=== PATIENT | female | born 1995 | race Caucasian/White ===

== ENCOUNTER 2018-08-29 16:00 | Emergency (ER) | payer BC ==
[~2018-08-29] VITALS: Ht 152.4 cm; Wt 63.5 kg
--- OUTSIDE RECORDS SUMMARY | 2018-08-29 16:04 | XMS REPORT ---
Author Author Rosario Lucas Organization [employer] Address Unknown Phone Unavailable Care Team Providers Care Quality Auditor Name Role Phone Rosario Lucas Unavailable Encounters Encounter Location Date sore throat [facility] Jul 26, 2013 Problems Problem Type Condition ICD-9 Code Onset Dates Condition Status Assessment Acute tonsillitis 463 Active Assessment Strep pharyngitis 034.0 Active Medications Medication Code System Code Instructions Start Date End Date Status Dosage Augmentin [facility] [address]-50 500-125 MG Orally Twice a day Jul 26, 2013 Aug 02, 2013 Active 1 tablet Bromfed DM [facility] [address]-37 30-2-10 MG/5ML Orally every 6 hrs Jul 26, 2013 Aug 05, 2013 Active 10 ml as needed Sinus Congestion/Pain Day/Nght [facility] [address] 2-5-325 & 5-325 MG Orally Active as directed Social History Social History Element Qualifiers Date Reported Where or with whom do you live ? . mother Jul 26, 2013 hobbies/sports . dance Jul 26, 2013 children . none Jul 26, 2013 Tobacco Use: . Are you a: never smoker Jul 26, 2013 Marital Status: single. Jul 26, 2013 Do you drink alcohol? . Status: No Jul 26, 2013 Occupation: . student Jul 26, 2013 Family history Qualifier Description Comment Date Reported Father alive healthy Jul 26, 2013 Mother alive multiple sclerosis Jul 26, 2013 Siblings alive healthy Jul 26, 2013 Vital Signs Date/Time: Jul 26, 2013 Weight 125 lbs Height 60 inches Temperature 98.8 F Cardiac Monitoring Heart Rate 88 Beats per Minute Blood Pressure Diastolic 72 mm Hg Blood Pressure Systolic 104 mm Hg Results RAPID STREP Summary Purpose [employer] Submission
--- OUTSIDE RECORDS SUMMARY | 2018-08-29 16:04 | XMS REPORT ---
Author Author Rosario Lucas [facility] [employer] Address Unknown Phone Unavailable Care Team Providers Care Coat Operator Name Role Phone Rosario Lucas Unavailable Encounters Encounter Location Date sore throat [facility] Jul 26, 2013 Unknown [facility] Aug 14, 2013 Social History Social History Element Qualifiers Date [...] 2013 Occupation: . student Jul 26, 2013 Vital Signs Date/Time: Jul 26, 2013 Weight 125 lbs Height 60 inches Temperature 98.8 F Cardiac Monitoring Heart Rate 88 Beats per Minute Blood Pressure Diastolic 72 mm Hg Blood Pressure Systolic 104 mm Hg Summary Purpose [employer] Submission
--- OUTSIDE RECORDS SUMMARY | 2018-08-29 16:04 | XMS REPORT ---
Author Author Genevieve Walker Organization [employer] Address Unknown Phone Unavailable Care Team Providers Care No Bake Molder Name Role Phone Genevieve Walker CP Unavailable Allergies No Known Allergies Problems Problem Type Condition Code Onset Dates Condition Status Problem Depression, unspecified depression type F32.9 Active Problem Seasonal allergic rhinitis, unspecified allergic rhinitis trigger J30.2 Active Problem Anxiety disorder, unspecified F41.9 Active Assessment Anxiety disorder, unspecified F41.9 Active Medications Medication Code System Code Instructions Start Date End Date Status Dosage Sertraline HCl [facility] 83215321724 50 mg Orally Once a day October 04, 2017 Active 1 tablet Results No Known Results Summary Purpose [employer] Submission
--- OUTSIDE RECORDS SUMMARY | 2018-08-29 16:04 | XMS REPORT ---
Author Author Aime Velasquez Organization [employer] Address Unknown Phone Unavailable Care Team Providers Care Reinstatement Clerk Name Role Phone Aime Velasquez CP Unavailable Allergies No Known Allergies Problems Problem Type Condition Code Onset Dates Condition Status Problem Depression, unspecified depression type F32.9 Active Problem Seasonal allergic rhinitis, unspecified allergic rhinitis trigger J30.2 Active Problem Anxiety disorder, unspecified F41.9 Active Assessment Current mild episode of major depressive disorder without prior episode F32.0 Active Medications Medication Code System Code Instructions Start Date End Date Status Dosage Sertraline HCl [facility] 72096963021 50 mg Orally Once a day October 19, 2017 Active 1 tablet Results No Known Results Summary Purpose [employer] Submission
--- OUTSIDE RECORDS SUMMARY | 2018-08-29 16:04 | XMS REPORT ---
Author Author Aime Velasquez [employer] Address Unknown Phone Unavailable Care Team Providers Care Manager Epic Name Role Phone Aime Velasquez Unavailable Allergies, Adverse Reactions, Alerts Substance Reaction Event Type N.K.D.A. Info Not Available Non Drug Allergy Problems Problem Type Condition Code Onset Dates Condition Status Problem Depression, unspecified depression type F32.9 Active Problem Seasonal allergic rhinitis, unspecified allergic rhinitis trigger J30.2 Active Problem Anxiety disorder, unspecified F41.9 Active Assessment Acute non-recurrent maxillary sinusitis J01.00 Active Assessment Fever, unspecified fever cause R50.9 Active Assessment Strep pharyngitis J02.0 Active Medications Medication Code System Code Instructions Start Date End Date Status Dosage Sertraline HCl [facility] 30678493049 50 mg Orally Once a day October 19, 2017 Active 1 tablet Sertraline HCl ND 71188444021 100 mg Orally & to be started in 2 weeks Once a day October 04, 2017 Active 1 tablet Sertraline HCl ND 53562469444 50 mg Orally Once a day October 04, 2017 Active 1 tablet Zyrtec Allergy ND 38596545903 10 mg Orally Once a day PRN Active 1 tablet Lexapro ND 38332850415 10 MG Orally Once a day August 31, 2016 Active 1 tablet Augmentin [facility] 57891169297 875-125 MG Orally every 12 hrs Apr 11, 2018 Apr 21, 2018 Active 1 tablet Kristan Allergy ND 79393150243 180 MG Orally Once a day PRN Active 1 tablet as needed Medrol ND 83487413254 4 mg Orally as directed Apr 11, 2018 Apr 17, 2018 Active as directed & to be started thurs am as discussed in clinic Vital Signs Date/Time: Apr 11, 2018 BMI 27.25 Index Weight 149 lbs Height 62 in Temperature 98.9 F Cardiac Monitoring Heart Rate 94 /min Blood Pressure Diastolic 74 mm Hg Blood Pressure Systolic 102 mm Hg Results Name Result Date Reference Range Unit Abnormality Flag URINE ---- Test, Urine negative [id number] [place] 1MGx4 RAPID STREP ----Positive Positive [id number] Summary Purpose [employer]ClinicalWorks Submission
--- OUTSIDE RECORDS SUMMARY | 2018-08-29 16:04 | XMS REPORT | Continuity of Care Document ---
Author Author [facility] Interface Address Unknown Phone Unavailable Problems Problem Status Onset Date Classification Date Reported Comments Source EYE PAIN OR INJURY Active 05/03/2018 [facility] Influenza due to other identified influenza virus with other respiratory manifestations 07/29/2017 10/30/2017 [facility] Influenza A 07/24/2017 10/30/2017 [facility] FLU LIKE SYMPTOMS Active 07/24/2017 [facility] Discharge Diagnosis: Viral URI with cough 06/21/2017 06/24/2017 [facility] COLD Active 06/21/2017 [facility] Discharge Diagnosis: Laceration 01/02/2015 01/05/2015 [facility] LEFT HAND LACERATION Active 01/02/2015 [facility] Depression, unspecified depression type Active Problem 08/16/2018 [facility] Seasonal allergic rhinitis, unspecified allergic rhinitis trigger Active Problem 08/16/2018 [facility] Anxiety disorder, unspecified Active Problem 08/16/2018 [facility] Acute URI Active Diagnosis 03/27/2017 [facility] Sore throat Active Diagnosis 03/27/2017 [facility] Current mild episode of major depressive disorder without prior episode Active Diagnosis 12/21/2017 [facility] Goiter Active Diagnosis 08/16/2018 [facility] Hyperthyroidism Active Problem 08/16/2018 [facility] Contraceptive management Active Diagnosis 07/30/2018 [facility] BMI 28.0-28.9,adult Active Diagnosis 07/30/2018 [facility] Acute tonsillitis Active Diagnosis 07/29/2013 [facility] Strep pharyngitis Active Diagnosis 07/29/2013 [facility] Acute non-recurrent maxillary sinusitis Active Diagnosis 04/19/2018 [facility] Fever, unspecified fever cause Active Diagnosis 04/19/2018 [facility] Strep pharyngitis Active Diagnosis 04/19/2018 [facility] Chest pressure Active Diagnosis 10/08/2017 [facility] Routine general medical examination at a health care facility Active Diagnosis 10/08/2017 [facility] Sore throat Active Diagnosis 12/28/2013 [facility] Fever Active Diagnosis 07/14/2014 [facility] Pharyngitis Active Diagnosis 12/28/2013 [facility] Cough Active Diagnosis 07/14/2014 [facility] Acute pharyngitis Active Diagnosis 07/14/2014 [facility] Scabies Active Diagnosis 07/14/2014 [facility] Impacted ear wax Active Diagnosis 08/28/2015 [facility] Left ear pain Active Diagnosis 08/28/2015 [facility] Food allergy Active Diagnosis 05/03/2015 [facility] Allergic rhinitis Active Diagnosis 05/03/2015 [facility] Body mass index of 20.0-20.9 in adult Active Diagnosis 05/03/2015 [facility] Urinary tract infection Active Diagnosis 12/11/2015 [facility] Frequent urination Active Diagnosis 12/11/2015 [facility] UTI Active Diagnosis 09/20/2015 [facility] Burning with urination Active Diagnosis 09/20/2015 [facility] Encounter for oral contraception initial prescription Active Diagnosis 09/20/2015 [facility] Upper respiratory infection Active Diagnosis 03/05/2016 [facility] Canker sores oral Active Diagnosis 03/27/2016 [facility] Medications Medication Details Route Status Patient Instructions Ordering Provider Order Date Source Amoxicillin 1 tablet Orally Active 500 MG Orally every 12 hrs Aaron 08/03/2018 [facility] Estrostep Fe 1 tablet Orally Active 1-20/1-30/1-35 MG-MCG Orally Once a day Aaron 07/25/2018 [facility] NuvaRing 1 ring Vaginal Active 0.12-0.015 MG/24HR Vaginal for 3 weeks Zeke 07/23/2018 [facility] Augmentin 1 tablet Orally Active 875-125 MG Orally every 12 hrs Velasquez 04/11/2018 [facility] Medrol as directed & to be started thurs am as discussed in clinic Orally Active 4 mg Orally as directed Velasquez 04/11/2018 [facility] Sertraline HCl 1 tablet Orally Active 50 mg Orally Once a day Velasquez 10/19/2017 [facility] Sertraline HCl 1 tablet Orally Active 50 mg Orally Once a day Aaron 10/04/2017 [facility] Sertraline HCl 1 tablet Orally & to be started in 2 weeks Active 100 mg Orally & to be started in 2 weeks Once a day Velasquez 10/04/2017 [facility] Acetaminophen 325 MG Oral Tablet [Tylenol] 650 mg=2 tab, PO, Q6H, PRN Fever, X 5 day, # 24 tab, 0 Refill(s) No Longer Active 07/24/2017 [facility] Tylenol 650 mg, Route: PO, Drug form: TAB, ONCE, Dosing Weight 65.909, kg, Priority: STAT, Start date: 07/24/17 11:04:00 [employer], Stop date: 07/24/17 11:04:00 [employer] Inactive 07/24/2017 [facility] benzonatate 200 MG Oral Capsule [Tessalon] 200 mg=1 cap, PO, TID, X 7 day, # 21 cap, 0 Refill(s) Active 06/21/2017 [facility] Amoxicillin 1 capsule Orally Active 500 MG Orally twice a day Yoig 03/25/2017 [facility] Lexapro 1 tablet Orally Active 10 MG Orally Once a day Velasquez 08/31/2016 [facility] Lexapro 1 tablet Orally Active 10 MG Orally Once a day Yogi 08/31/2016 [facility] magic mouthwash 1 tsp (gargle and spit) PO Active 1:1:1 PO Q6 PRN Yogi 03/25/2016 [facility] Zithromax 2 tablets on the first day, then 1 tablet daily for 4 days Orally Active 250 MG Orally Once a day Yogi 02/28/2016 [facility] Bactrim DS 1 tablet Orally Active 800-160 MG Orally twice a day Yogi 12/09/2015 [facility] Diflucan 1 tablet Orally Active 200 MG Orally once Yogi 12/09/2015 [facility] Diflucan 1 tablet Orally Active 200 MG Orally Once a day Yogi 09/20/2015 [facility] Enskyce 1 tablet Orally Active 0.15-30 MG-MCG Orally Once a day Yogi 09/18/2015 [facility] Macrobid 1 capsule with food Orally Active 100 mg Orally twice a day [facility] 09/18/2015 [facility] Augmentin 1 tablet Orally Active 500-125 MG Orally Twice a day Black 12/19/2013 [facility] Augmentin 1 tablet Orally Active 500-125 MG Orally Twice a day [facility] 07/26/2013 [facility] Bromfed DM 10 ml as needed Orally Active 30-2-10 MG/5ML Orally every 6 hrs [facility] 07/26/2013 [facility] Zyrtec Allergy 1 tablet Orally Active 10 mg Orally Once a day PRN Aaron [facility] Kristan Allergy 1 tablet as needed Orally Active 180 MG Orally Once a day PRN Ron [facility] Sinus Congestion/Pain Day/Nght as directed Orally Active 2-5-325 & 5-325 MG Orally [facility] Zyrtec Allergy 1 tablet Orally Active 10 mg Orally Once a day PRN Velasquez [facility] Kristan Allergy 1 tablet as needed Orally Active 180 MG Orally Once a day PRN Velasquez [facility] Ear Wax Drops Unknown Otic Active 6.5 % Otic Yogi [facility] Advil 1 tablet as needed Orally Active 200 MG Orally prn Yogi [facility] Allergies, Adverse Reactions, Alerts Substance Category Reaction Severity Reaction type Status Date Reported Comments Source N.K.D.A. Adverse Reaction Info Not Available Adverse Reaction Active 08/13/2018 [facility] Immunizations Immunization Date Given Site Status Last Updated Comments Source Results Order Name Results Value Reference Range Date Interpretation Comments Source RAPID Grp A Strep Scr Negative (07/24/17 11:11 AM) Negative 07/24/2017 [facility] VIRAL - SEROLOGY Influ B Negative (07/24/17 11:11 AM) Negative 07/24/2017 [facility] VIRAL - SEROLOGY Influ A Positive 1 *ABN* (1/27/18 11:11 AM) Negative 07/24/2017 Result Comment: "Significant Findings called to Michelle Schuler at 07/24/2017 11:38 by HT. Read Back OK." [facility] Chest 2 views DX Chest 2 views DX Study: Chest 2 views DX Clinical Indication: - cough Comparison: Chest x-ray from 06/21/2017 FINDINGS: The cardiac silhouette is normal in size. The lungs are clear and without consolidation or congestion. No pleural effusion or pneumothorax is seen. The osseous structures are unremarkable. IMPRESSION: No acute cardiopulmonary disease. SL: [id number] 07/24/2017 - - Read by: David Raymundo MD Dictated Date/time: 07/24/17 11:20 Electronically Signed by: David Raymundo MD 07/24/17 11:21 FINAL REPORT [facility] RAPID Grp A Strep Scr Negative (06/21/17 1:57 AM) Negative 06/21/2017 [facility] Chest 2 views DX Chest 2 views DX XR CHEST 2 VIEWS HISTORY: - cough COMPARISON: None. FINDINGS: The lungs are clear. The heart and vascular markings are normal. No pleural abnormality. The bones are intact. IMPRESSION: No active process. SL: [id number] 06/21/2017 - - Read by: Ham Landaverde MD Dictated Date/time: 06/21/17 01:55 Electronically Signed by: aHm Landaverde MD 06/21/17 01:56 FINAL REPORT [facility] Vital Signs Vital Sign Value Date Comments Source Weight 152 08/13/2018 [facility] Height 62 08/13/2018 [facility] Heart Rate 89 08/13/2018 [facility] Diastolic (mm Hg) 74 08/13/2018 [facility] Systolic (mm Hg) 112 08/13/2018 [facility] Weight 155.8 07/23/2018 [facility] Height 62 07/23/2018 [facility] Diastolic (mm Hg) 66 07/23/2018 [facility] Systolic (mm Hg) 98 07/23/2018 [facility] Weight 149 04/11/2018 [facility] Height 62 04/11/2018 [facility] Temperature Oral (F) 98.9 F 04/11/2018 [facility] Heart Rate 94 04/11/2018 [facility] Diastolic (mm Hg) 74 04/11/2018 [facility] Systolic (mm Hg) 102 04/11/2018 [facility] Weight 157.6 10/04/2017 [facility] Height 62 10/04/2017 [facility] Temperature Oral (F) 98.4 F 10/04/2017 [facility] Heart Rate 102 10/04/2017 [facility] Diastolic (mm Hg) 80 10/04/2017 [facility] Systolic (mm Hg) 118 10/04/2017 [facility] Temperature Oral (F) 98.4 F 07/24/2017 [facility] Heart Rate 88 07/24/2017 [facility] Respitory Rate 20 07/24/2017 [facility] Systolic (mm Hg) 118 07/24/2017 [facility] Diastolic (mm Hg) 78 07/24/2017 [facility] Height 152.4 cm 07/24/2017 [facility] Temperature Oral (F) 101.1 F 07/24/2017 [facility] BMI Calculated 28.38 07/24/2017 [facility] Weight 65.909 07/24/2017 [facility] Heart Rate 124 07/24/2017 [facility] Respitory Rate 20 07/24/2017 [facility] Systolic (mm Hg) 126 07/24/2017 [facility] Diastolic (mm Hg) 76 07/24/2017 [facility] Heart Rate 86 06/21/2017 [facility] Respitory Rate 18 06/21/2017 [facility] Systolic (mm Hg) 106 06/21/2017 [facility] Diastolic (mm Hg) 71 06/21/2017 [facility] Height 152.4 cm 06/21/2017 [facility] BMI Calculated 27.4 06/21/2017 [facility] Weight 63.636 06/21/2017 [facility] Temperature Oral (F) 98.4 F 06/21/2017 [facility] Respitory Rate 18 06/21/2017 [facility] Heart Rate 93 06/21/2017 [facility] Systolic (mm Hg) 127 06/21/2017 [facility] Diastolic (mm Hg) 83 06/21/2017 [facility] Weight 153 03/25/2017 [facility] Height 62 03/25/2017 [facility] Heart Rate 85 03/25/2017 [facility] Diastolic (mm Hg) 72 03/25/2017 [facility] Systolic (mm Hg) 118 03/25/2017 [facility] Weight 155 08/31/2016 [facility] Height 62 08/31/2016 [facility] Heart Rate 87 08/31/2016 [facility] Diastolic (mm Hg) 84 08/31/2016 [facility] Systolic (mm Hg) 122 08/31/2016 [facility] Weight 150 07/02/2016 [facility] Height 62 07/02/2016 [facility] Temperature Oral (F) 98.7 F 07/02/2016 [facility] Heart Rate 91 07/02/2016 [facility] Diastolic (mm Hg) 70 07/02/2016 [facility] Systolic (mm Hg) 118 07/02/2016 [facility] Weight 144 03/25/2016 [facility] Height 62 03/25/2016 [facility] Heart Rate 81 03/25/2016 [facility] Diastolic (mm Hg) 70 03/25/2016 [facility] Systolic (mm Hg) 102 03/25/2016 [facility] Weight 144 02/28/2016 [facility] Height 62 02/28/2016 [facility] Temperature Oral (F) 98.0 F 02/28/2016 [facility] Heart Rate 88 02/28/2016 [facility] Diastolic (mm Hg) 70 02/28/2016 [facility] Systolic (mm Hg) 116 02/28/2016 [facility] Weight 141 12/09/2015 [facility] Height 62 12/09/2015 [facility] Temperature Oral (F) 98.2 F 12/09/2015 [facility] Heart Rate 71 12/09/2015 [facility] Diastolic (mm Hg) 72 12/09/2015 [facility] Systolic (mm Hg) 118 12/09/2015 [facility] Weight 141 09/18/2015 [facility] Height 62 09/18/2015 [facility] Heart Rate 75 09/18/2015 [facility] Diastolic (mm Hg) 70 09/18/2015 [facility] Systolic (mm Hg) 106 09/18/2015 [facility] Weight 142 08/26/2015 [facility] Height 62 08/26/2015 [facility] Heart Rate 70 08/26/2015 [facility] Diastolic (mm Hg) 68 08/26/2015 [facility] Systolic (mm Hg) 115 08/26/2015 [facility] Weight 131 05/01/2015 [facility] Height 62 05/01/2015 [facility] Heart Rate 75 05/01/2015 [facility] Diastolic (mm Hg) 70 05/01/2015 [facility] Systolic (mm Hg) 108 05/01/2015 [facility] Respitory Rate 14 01/03/2015 [facility] Systolic (mm Hg) 120 01/03/2015 [facility] Diastolic (mm Hg) 70 01/03/2015 [facility] Temperature Oral (F) 98.4 F 01/03/2015 [facility] Heart Rate 85 01/03/2015 [facility] Height 152.4 cm 01/03/2015 [facility] BMI Calculated 23.48 01/03/2015 [facility] Weight 54.545 01/03/2015 [facility] Systolic (mm Hg) 129 01/03/2015 [facility] Diastolic (mm Hg) 83 01/03/2015 [facility] Heart Rate 89 01/03/2015 [facility] Respitory Rate 20 01/03/2015 [facility] Temperature Oral (F) 98.3 F 01/03/2015 [facility] Weight 129 07/13/2014 [facility] Height 61 07/13/2014 [facility] Temperature Oral (F) 99.0 F 07/13/2014 [facility] Weight 124 12/19/2013 [facility] Height 60 12/19/2013 [facility] Temperature Oral (F) 99.1 F 12/19/2013 [facility] Heart Rate 96 12/19/2013 [facility] Diastolic (mm Hg) 78 12/19/2013 [facility] Systolic (mm Hg) 100 12/19/2013 [facility] Weight 125 07/26/2013 [facility] Height 60 07/26/2013 [facility] Temperature Oral (F) 98.8 F 07/26/2013 [facility] Heart Rate 88 07/26/2013 [facility] Diastolic (mm Hg) 72 07/26/2013 [facility] Systolic (mm Hg) 104 07/26/2013 [facility] Encounters Location Location Details Encounter Type Encounter Number Reason For Visit Attending Provider ADM Date DC Date Status Source [facility] sore throat [id number] 07/26/2013 07/26/2013 [facility] sore throat [id number] 07/26/2013 07/26/2013 [facility] sore throat [id number] 07/26/2013 07/26/2013 [facility] sore throat [id number] 07/26/2013 07/26/2013 [facility] sore throat [id number] 07/26/2013 07/26/2013 [facility] sore throat [id number] 07/26/2013 07/26/2013 [facility] sore throat [id number] 07/26/2013 07/26/2013 [facility] sore throat [id number] 07/26/2013 07/26/2013 [facility] sore throat [id number] 07/26/2013 07/26/2013 [facility] sore throat [id number] 07/26/2013 07/26/2013 [facility] sore throat [id number] 07/26/2013 07/26/2013 [facility] sore throat [id number] 07/26/2013 07/26/2013 [facility] sore throat [id number] 07/26/2013 07/26/2013 [facility] sore throat [id number] 07/26/2013 07/26/2013 [facility] sore throat [id number] 07/26/2013 07/26/2013 [facility] sore throat [id number] 07/26/2013 07/26/2013 [facility] Unknown [id number] 08/14/2013 08/14/2013 [facility] Unknown [id number] 08/14/2013 08/14/2013 [facility] Unknown [id number] 08/14/2013 08/14/2013 [facility] Unknown [id number] 08/14/2013 08/14/2013 [facility] Unknown [id number] 08/14/2013 08/14/2013 [facility] Unknown [id number] 08/14/2013 08/14/2013 [facility] Unknown [id number] 08/14/2013 08/14/2013 [facility] Unknown [id number] 08/14/2013 08/14/2013 [facility] Unknown [id number] 08/14/2013 08/14/2013 [facility] Unknown [id number] 08/14/2013 08/14/2013 [facility] Unknown [id number] 08/14/2013 08/14/2013 [facility] Unknown [id number] 08/14/2013 08/14/2013 [facility] Unknown [id number] 08/14/2013 08/14/2013 [facility] Unknown [id number] 08/14/2013 08/14/2013 [facility] Unknown [id number] 08/14/2013 08/14/2013 [facility] fever 102 and sore throat [id number] 12/19/2013 12/19/2013 [facility] fever 102 and sore throat [id number] 12/19/2013 12/19/2013 [facility] fever 102 and sore throat [id number] 12/19/2013 12/19/2013 [facility] fever 102 and sore throat [id number] 12/19/2013 12/19/2013 [facility] fever 102 and sore throat [id number] 12/19/2013 12/19/2013 [facility] fever 102 and sore throat [id number] 12/19/2013 12/19/2013 [facility] fever 102 and sore throat [id number] 12/19/2013 12/19/2013 [facility] fever 102 and sore throat [id number] 12/19/2013 12/19/2013 [facility] fever 102 and sore throat [id number] 12/19/2013 12/19/2013 [facility] fever 102 and sore throat [id number] 12/19/2013 12/19/2013 [facility] fever 102 and sore throat [id number] 12/19/2013 12/19/2013 [facility] fever 102 and sore throat [id number] 12/19/2013 12/19/2013 [facility] fever 102 and sore throat [id number] 12/19/2013 12/19/2013 [facility] fever 102 and sore throat [id number] 12/19/2013 12/19/2013 [facility] Referral to Ortho [id number] 03/16/2014 03/16/2014 [facility] Referral to Ortho [id number] 03/16/2014 03/16/2014 [facility] Referral to Ortho [id number] 03/16/2014 03/16/2014 [facility] Referral to Ortho [id number] 03/16/2014 03/16/2014 [facility] Referral to Ortho [id number] 03/16/2014 03/16/2014 [facility] Referral to Ortho [id number] 03/16/2014 03/16/2014 [facility] Referral to Ortho [id number] 03/16/2014 03/16/2014 [facility] Referral to Ortho [id number] 03/16/2014 03/16/2014 [facility] Referral to Ortho [id number] 03/16/2014 03/16/2014 [facility] Referral to Ortho [id number] 03/16/2014 03/16/2014 [facility] Referral to Ortho [id number] 03/16/2014 03/16/2014 [facility] Referral to Ortho [id number] 03/16/2014 03/16/2014 [facility] Referral to Ortho [id number] 03/16/2014 03/16/2014 [facility] FEVER [id number] 07/13/2014 07/13/2014 [facility] FEVER [id number] 07/13/2014 07/13/2014 [facility] FEVER [id number] 07/13/2014 07/13/2014 [facility] FEVER [id number] 07/13/2014 07/13/2014 [facility] FEVER [id number] 07/13/2014 07/13/2014 [facility] FEVER [id number] 07/13/2014 07/13/2014 [facility] FEVER [id number] 07/13/2014 07/13/2014 [facility] FEVER [id number] 07/13/2014 07/13/2014 [facility] FEVER [id number] 07/13/2014 07/13/2014 [facility] FEVER [id number] 07/13/2014 07/13/2014 [facility] FEVER [id number] 07/13/2014 07/13/2014 [facility] [id number] 07/13/2014 07/13/2014 [facility] BLADDER [id number] 08/13/2014 08/13/2014 [facility] BLADDER [id number] 08/13/2014 08/13/2014 [facility] BLADDER [id number] 08/13/2014 08/13/2014 [facility] BLADDER [id number] 08/13/2014 08/13/2014 [facility] BLADDER [id number] 08/13/2014 08/13/2014 [facility] BLADDER [id number] 08/13/2014 08/13/2014 [facility] BLADDER [id number] 08/13/2014 08/13/2014 [facility] BLADDER [id number] 08/13/2014 08/13/2014 [facility] BLADDER [id number] 08/13/2014 08/13/2014 [facility] BLADDER [id number] 08/13/2014 08/13/2014 [facility] BLADDER [id number] 08/13/2014 08/13/2014 [facility] BLADDER [id number] 10/03/2014 10/03/2014 [facility] BLADDER [id number] 10/03/2014 10/03/2014 [facility] BLADDER [id number] 10/03/2014 10/03/2014 [facility] BLADDER [id number] 10/03/2014 10/03/2014 [facility] BLADDER [id number] 10/03/2014 10/03/2014 [facility] BLADDER [id number] 10/03/2014 10/03/2014 [facility] BLADDER [id number] 10/03/2014 10/03/2014 [facility] BLADDER [id number] 10/03/2014 10/03/2014 [facility] BLADDER [id number] 10/03/2014 10/03/2014 [facility] BLADDER [id number] 10/03/2014 10/03/2014 [facility] BLADDER [id number] 10/03/2014 10/03/2014 [facility] Labs [id number] 10/09/2014 10/09/2014 [facility] Labs [id number] 10/09/2014 10/09/2014 [facility] Labs [id number] 10/09/2014 10/09/2014 [facility] Labs [id number] 10/09/2014 10/09/2014 [facility] Labs [id number] 10/09/2014 10/09/2014 [facility] Labs [id number] 10/09/2014 10/09/2014 [facility] Labs [id number] 10/09/2014 10/09/2014 [facility] Labs [id number] 10/09/2014 10/09/2014 [facility] Labs [id number] 10/09/2014 10/09/2014 [facility] Labs [id number] 10/09/2014 10/09/2014 [facility] Labs [id number] 10/09/2014 10/09/2014 [facility] EARACHE [id number] 10/12/2014 10/12/2014 [facility] EARACHE [id number] 10/12/2014 10/12/2014 [facility] EARACHE [id number] 10/12/2014 10/12/2014 [facility] EARACHE [id number] 10/12/2014 10/12/2014 [facility] EARACHE [id number] 10/12/2014 10/12/2014 [facility] EARACHE [id number] 10/12/2014 10/12/2014 [facility] EARACHE [id number] 10/12/2014 10/12/2014 [facility] EARACHE [id number] 10/12/2014 10/12/2014 [facility] EARACHE [id number] 10/12/2014 10/12/2014 [facility] EARACHE [id number] 10/12/2014 10/12/2014 [facility] EARACHE [id number] 10/12/2014 10/12/2014 [facility] [id number] Aime Garcia 01/03/2015 01/03/2015 [facility] STITCHES REMOVAL [id number] 01/11/2015 01/11/2015 [facility] STITCHES REMOVAL [id number] 01/11/2015 01/11/2015 [facility] STITCHES REMOVAL [id number] 01/11/2015 01/11/2015 [facility] STITCHES REMOVAL [id number] 01/11/2015 01/11/2015 [facility] STITCHES REMOVAL [id number] 01/11/2015 01/11/2015 [facility] STITCHES REMOVAL [id number] 01/11/2015 01/11/2015 [facility] STITCHES REMOVAL [id number] 01/11/2015 01/11/2015 [facility] STITCHES REMOVAL [id number] 01/11/2015 01/11/2015 [facility] STITCHES REMOVAL [id number] 01/11/2015 01/11/2015 [facility] STITCHES REMOVAL [id number] 01/11/2015 01/11/2015 [facility] STITCHES REMOVAL [id number] 01/11/2015 01/11/2015 [facility] possible allergic reaction that started last night [id number] 05/01/2015 05/01/2015 [facility] possible allergic reaction that started last night [id number] 05/01/2015 05/01/2015 [facility] possible allergic reaction that started last night [id number] 05/01/2015 05/01/2015 [facility] possible allergic reaction that started last night [id number] 05/01/2015 05/01/2015 [facility] possible allergic reaction that started last night [id number] 05/01/2015 05/01/2015 [facility] possible allergic reaction that started last night [id number] 05/01/2015 05/01/2015 [facility] possible allergic reaction that started last night [id number] 05/01/2015 05/01/2015 [facility] possible allergic reaction that started last night [id number] 05/01/2015 05/01/2015 [facility] possible allergic reaction that started last night [id number] 05/01/2015 05/01/2015 [facility] possible allergic reaction that started last night [id number] 05/01/2015 05/01/2015 [facility] possible allergic reaction that started last night [id number] 05/01/2015 05/01/2015 [facility] Ear pain [id number] 08/26/2015 08/26/2015 [facility] Ear pain [id number] 08/26/2015 08/26/2015 [facility] Ear pain [id number] 08/26/2015 08/26/2015 [facility] Ear pain [id number] 08/26/2015 08/26/2015 [facility] Ear pain [id number] 08/26/2015 08/26/2015 [facility] Ear pain [id number] 08/26/2015 08/26/2015 [facility] Ear pain [id number] 08/26/2015 08/26/2015 [facility] Ear pain [id number] 08/26/2015 08/26/2015 [facility] Ear pain [id number] 08/26/2015 08/26/2015 [facility] Ear pain [id number] 08/26/2015 08/26/2015 [facility] Bladder [id number] 09/18/2015 09/18/2015 [facility] Bladder [id number] 09/18/2015 09/18/2015 [facility] Bladder [id number] 09/18/2015 09/18/2015 [facility] Bladder [id number] 09/18/2015 09/18/2015 [facility] Bladder [id number] 09/18/2015 09/18/2015 [facility] Bladder [id number] 09/18/2015 09/18/2015 [facility] Bladder [id number] 09/18/2015 09/18/2015 [facility] Bladder [id number] 09/18/2015 09/18/2015 [facility] Bladder [id number] 09/18/2015 09/18/2015 [facility] Unknown [id number] 09/20/2015 09/20/2015 [facility] Unknown [id number] 09/20/2015 09/20/2015 [facility] Unknown [id number] 09/20/2015 09/20/2015 [facility] Unknown [id number] 09/20/2015 09/20/2015 [facility] Unknown [id number] 09/20/2015 09/20/2015 [facility] Unknown [id number] 09/20/2015 09/20/2015 [facility] Unknown [id number] 09/20/2015 09/20/2015 [facility] Unknown [id number] 09/20/2015 09/20/2015 [facility] Unknown [id number] 11/07/2015 11/07/2015 [facility] Unknown [id number] 11/07/2015 11/07/2015 [facility] [facility] Unknown [id number] 11/07/2015 11/07/2015 [facility] Unknown [id number] 11/07/2015 11/07/2015 [facility] Unknown [id number] 11/07/2015 11/07/2015 [facility] Unknown [id number] 11/07/2015 11/07/2015 [facility] Unknown [id number] 11/07/2015 11/07/2015 [facility] Bladder problems [id number] 12/09/2015 12/09/2015 [facility] Bladder problems [id number] 12/09/2015 12/09/2015 [facility] Bladder problems [id number] 12/09/2015 12/09/2015 [facility] Bladder problems [id number] 12/09/2015 12/09/2015 [facility] Bladder problems [id number] 12/09/2015 12/09/2015 [facility] Bladder problems [id number] 12/09/2015 12/09/2015 [facility] Sick Visit [id number] 02/28/2016 02/28/2016 [facility] Sick Visit [id number] 02/28/2016 02/28/2016 [facility] Sick Visit [id number] 02/28/2016 02/28/2016 [facility] Sick Visit [id number] 02/28/2016 02/28/2016 [facility] Sick Visit [id number] 02/28/2016 02/28/2016 [facility] Sore's inside lip/mouth [id number] 03/25/2016 03/25/2016 [facility] Sore's inside lip/mouth [id number] 03/25/2016 03/25/2016 [facility] Sore's inside lip/mouth [id number] 03/25/2016 03/25/2016 [facility] Sore's inside lip/mouth [id number] 03/25/2016 03/25/2016 [facility] earache [id number] 07/02/2016 07/02/2016 [facility] earache [id number] 07/02/2016 07/02/2016 [facility] earache [id number] 07/02/2016 07/02/2016 [facility] anxiety [id number] 08/31/2016 08/31/2016 [facility] anxiety [id number] 08/31/2016 08/31/2016 [facility] letter [id number] 09/01/2016 09/01/2016 [facility] [id number] Wilberto Cartagena 06/21/2017 06/21/2017 [facility] [id number] Baron Gao 07/24/2017 07/24/2017 [facility] Procedures Procedure Code Date Perfomer Comments Source
--- OUTSIDE RECORDS SUMMARY | 2018-08-29 16:04 | XMS REPORT ---
Author Author Aime Velasquez Organization [employer] Address Unknown Phone Unavailable Care Team Providers Care Instant Printer Operator Name Role Phone Aime Velasquez CP Unavailable Allergies, Adverse Reactions, Alerts Substance Reaction Event Type N.K.D.A. Info Not Available Non Drug Allergy Problems Problem Type Condition Code Onset Dates Condition Status Assessment Anxiety disorder, unspecified F41.9 Active Assessment Depression, unspecified depression type F32.9 Active Problem Depression, unspecified depression type F32.9 Active Problem Seasonal allergic rhinitis, unspecified allergic rhinitis trigger J30.2 Active Problem Anxiety disorder, unspecified F41.9 Active Assessment Screening for malignant neoplasm of breast Z12.39 Active Assessment Seasonal allergic rhinitis, unspecified allergic rhinitis trigger J30.2 Active Assessment Chest pressure R07.89 Active Assessment Routine general medical examination at a health care facility Z00.00 Active Medications Medication Code System Code Instructions Start Date End Date Status Dosage Sertraline HCl [facility] 09293674484 100 mg Orally & to be started in 2 weeks Once a day October 04, 2017 Active 1 tablet Zyrtec Allergy [facility] [address]-00 10 mg Orally Once a day PRN Active 1 tablet Sertraline HCl [facility] 92676765466 50 mg Orally Once a day October 04, 2017 Active 1 tablet Lexapro [facility] 37094648948 10 MG Orally Once a day August 31, 2016 Active 1 tablet Kristan Allergy [facility] 22[address]-03339 180 MG Orally Once a day PRN Active 1 tablet as needed Vital Signs Date/Time: October 04, 2017 BMI 28.82 Index Weight 157.6 lbs Height 62 in Temperature 98.4 F Cardiac Monitoring Heart Rate 102 /min Blood Pressure Diastolic 80 mm Hg Blood Pressure Systolic 118 mm Hg Results Name Result Date Reference Range Unit Abnormality Flag EKG Summary Purpose [employer] Submission
--- OUTSIDE RECORDS SUMMARY | 2018-08-29 16:04 | XMS REPORT ---
Author Author Roberto Carlos De Los Santos Organization [employer] Address Unknown Phone Unavailable Care Team Providers Care Recreation Activities Coordinator Name Role Phone Roberto Carlos De Los Santos CP Unavailable Allergies No Known Allergies Problems Problem Type Condition Code Onset Dates Condition Status Problem Depression, unspecified depression type F32.9 Active Problem Seasonal allergic rhinitis, unspecified allergic rhinitis trigger J30.2 Active Problem Anxiety disorder, unspecified F41.9 Active Assessment Contraceptive management Z30.9 Active Medications Medication Code System Code Instructions Start Date End Date Status Dosage Zyrtec Allergy [facility] 80039596146 10 mg Orally Once a day PRN Active 1 tablet NuvaRing [facility] 24158649649 0.12-0.015 MG/24HR Vaginal for 3 weeks Jul 23, 2018 Inactive 1 ring Sertraline HCl [facility] 34223088811 50 mg Orally Once a day October 04, 2017 Active 1 tablet Estrostep Fe [facility] 82960001481 1-20/-30/1-35 MG-MCG Orally Once a day Jul 25, 2018 Active 1 tablet Results No Known Results Summary Purpose [employer]Works Submission
--- OUTSIDE RECORDS SUMMARY | 2018-08-29 16:04 | XMS REPORT ---
Author Author Belgica Calix [employer] Address Unknown Phone Unavailable Care Team Providers Care Electric Train Driver Name Role Phone Belgica Calix Unavailable Allergies, Adverse Reactions, Alerts Substance Reaction Event Type N.K.D.A. Info Not Available Non Drug Allergy Problems Problem Type Condition Code Onset Dates Condition Status Problem Depression, unspecified depression type F32.9 Active Problem Seasonal allergic rhinitis, unspecified allergic rhinitis trigger J30.2 Active Problem Anxiety disorder, unspecified F41.9 Active Assessment Acute URI J06.9 Active Assessment Seasonal allergic rhinitis, unspecified allergic rhinitis trigger J30.2 Active Assessment Sore throat J02.9 Active Medications Medication Code System Code Instructions Start Date End Date Status Dosage Lexapro [facility] 11985183765 10 MG Orally Once a day August 31, 2016 Active [address] [facility] 09800961114 500 MG Orally twice a day Mar 25, 2017 Apr 01, 2017 Active 1 capsule Vital Signs Date/Time: Mar 25, 2017 BMI 27.98 Index Weight 153 lbs Height 62 in Cardiac Monitoring Heart Rate 85 /min Blood Pressure Diastolic 72 mm Hg Blood Pressure Systolic 118 mm Hg Results Name Result Date Reference Range Unit Abnormality Flag RAPID STREP ----Negative NEG [id number] CBC With Differential/Platelet ----MCHC 34.3 60565710 31.5-35.7 g/dL ----MCH 28.2 [id number] 26.6-33.0 pg ----Platelets 242 95191059 150-379 x10E3/uL ----RDW 14.1 [id number] 12.3-15.4 % ----Immature Granulocytes 1 38251739 % ----Immature Grans (Abs) 0.1 [id number] 0.0-0.1 x10E3/uL ----Lymphs 22 76434547 % ----Monocytes 9 73593393 % ----Neutrophils 67 53521794 % ----Neutrophils (Absolute) 8.8 [id number] 1.4-7.0 x10E3/uL H ----Hematocrit 42.3 97197218 34.0-46.6 % ----Lymphs (Absolute) 2.8 [id number] 0.7-3.1 x10E3/uL ----MCV 82 20170325 79-97 fL ----RBC 5.15 [id number] 3.77-5.28 x10E6/uL ----Eos 1 20170325 % ----Basos 0 20170325 % ----Hemoglobin 14.5 33056126 11.1-15.9 g/dL ----Baso (Absolute) 0.0 59966921 0.0-0.2 x10E3/uL ----WBC 13.0 88350030 3.4-10.8 x10E3/uL H ----Monocytes(Absolute) 1.1 [id number] 0.1-0.9 x10E3/uL H ----Eos (Absolute) 0.2 [id number] 0.0-0.4 x10E3/uL Summary Purpose [employer]ClinicalWorks Submission
--- OUTSIDE RECORDS SUMMARY | 2018-08-29 16:04 | XMS REPORT ---
Author Author Jaime Alanis Organization [employer] Address Unknown Phone Unavailable Care Team Providers Care Beverage Steward Name Role Phone Jaime Alnais CP Unavailable Allergies, Adverse Reactions, Alerts Substance Reaction Event Type N.K.D.A. Info Not Available Non Drug Allergy Problems Problem Type Condition Code Onset Dates Condition Status Assessment Depression, unspecified depression type F32.9 Active Assessment BMI 28.0-28.9,adult Z68.28 Active Problem Depression, unspecified depression type F32.9 Active Problem Seasonal allergic rhinitis, unspecified allergic rhinitis trigger J30.2 Active Problem Anxiety disorder, unspecified F41.9 Active Assessment Seasonal allergic rhinitis, unspecified allergic rhinitis trigger J30.2 Active Assessment Anxiety disorder, unspecified F41.9 Active Assessment Contraceptive management Z30.9 Active Medications Medication Code System Code Instructions Start Date End Date Status Dosage Sertraline HCl ND 03890909661 50 mg Orally Once a day October 04, 2017 Active 1 tablet NuvaRing ND 54756602955 0.12-0.015 MG/24HR Vaginal for 3 weeks Jul 23, 2018 Active 1 ring Zyrtec Allergy ND 41598790868 10 mg Orally Once a day PRN Active 1 tablet Vital Signs Date/Time: Jul 23, 2018 BMI 28.49 Index Weight 155.8 lbs Height 62 in Blood Pressure Diastolic 66 mm Hg Blood Pressure Systolic 98 mm Hg Results No Known Results Summary Purpose [employer]ClinicalWorks Submission
--- OUTSIDE RECORDS SUMMARY | 2018-08-29 16:04 | XMS REPORT ---
Author Author Genevieve Walker Organization [employer] Address Unknown Phone Unavailable Care Team Providers Care Breakfast Hostess Name Role Phone Genevieve Walker CP Unavailable Allergies, Adverse Reactions, Alerts Substance Reaction Event Type N.K.D.A. Info Not Available Non Drug Allergy Problems Problem Type Condition Code Onset Dates Condition Status Assessment Goiter E04.9 Active Problem Goiter E04.9 Active Problem Anxiety disorder, unspecified F41.9 Active Problem Hyperthyroidism E05.90 Active Assessment Hyperthyroidism E05.90 Active Problem Depression, unspecified depression type F32.9 Active Problem Seasonal allergic rhinitis, unspecified allergic rhinitis trigger J30.2 Active Medications Medication Code System Code Instructions Start Date End Date Status Dosage Sertraline HCl [facility] 07487018392 50 mg Orally Once a day October 04, 2017 Active 1 tablet Zyrtec Allergy ND 69444276559 10 mg Orally Once a day PRN Active 1 tablet Estrostep Fe ND 92323115950 1-20/1-30/1-35 MG-MCG Orally Once a day Jul 25, 2018 Active 1 tablet Amoxicillin ND 60216491811 500 MG Orally every 12 hrs Aug 03, 2018 Aug 13, 2018 Active 1 tablet Vital Signs Date/Time: Aug 13, 2018 BMI 27.80 Index Weight 152 lbs Height 62 in Cardiac Monitoring Heart Rate 89 /min Blood Pressure Diastolic 74 mm Hg Blood Pressure Systolic 112 mm Hg Results No Known Results Summary Purpose [employer]ClinicalWorks Submission
--- OUTSIDE RECORDS SUMMARY | 2018-08-29 16:04 | XMS REPORT ---
Author Author Aime Velasquez Organization [employer] Address Unknown Phone Unavailable Care Team Providers Care Customs And Immigration Officer Name Role Phone Aime Velasquez CP Unavailable [...] Date End Date Status Dosage Sertraline HCl [facility] 23208796947 100 mg Orally & to be started in 2 weeks Once a day October 04, 2017 Active 1 tablet Lexapro ND 57989507807 10 MG Orally Once a day August 31, 2016 Active 1 tablet Kristan Allergy [facility] 89641024897 180 MG Orally Once a day PRN Active 1 tablet as needed Sertraline HCl ND 31474175258 50 mg Orally Once a day October 19, 2017 Active 1 tablet Sertraline HCl ND 07171426678 50 mg Orally Once a day October 04, 2017 Active 1 tablet Zyrtec Allergy ND 53501986489 10 mg Orally Once a day PRN Active 1 tablet Results No Known Results Summary Purpose [employer]ClinicalWorks Submission
--- OUTSIDE RECORDS SUMMARY | 2018-08-29 16:05 | XMS REPORT ---
Author Author Belgica Calix [facility] [employer] Address Unknown Phone Unavailable Care Team Providers Care Laborer Orchard Name Role Phone Belgica Calix Unavailable Allergies, Adverse Reactions, Alerts Substance Reaction Event Type N.K.D.A. Info Not Available Non Drug Allergy Encounters Encounter Location Date Referral to Ortho [facility] Mar 16, 2014 FEVER [facility] Jul 13, 2014 BLADDER [facility] Aug 13, 2014 BLADDER [facility] October 03, 2014 sore throat [facility] Jul 26, 2013 Unknown [facility] Aug 14, 2013 fever 102 and sore throat [facility] December 19, 2013 STITCHES REMOVAL [facility] January 11, 2015 Labs [facility] October 09, 2014 EARACHE [facility] October 12, 2014 Sick Visit [facility] Feb 28, 2016 Unknown [facility] November 07, 2015 Bladder problems [facility] December 09, 2015 Bladder [facility] September 18, 2015 Unknown [facility] September 20, 2015 possible allergic reaction that started last night [facility] May 01, 2015 Ear pain [facility] Aug 26, 2015 Problems Problem Type Condition ICD-9 Code Onset Dates Condition Status Assessment Upper respiratory infection J06.9 Active Medications Medication Code System Code Instructions Start Date End Date Status Dosage Zithromax [facility] [address]-22 250 MG Orally Once a day Feb 28, 2016 Mar 04, 2016 Active 2 tablets on the first day, then 1 tablet daily for 4 days Advil [facility] [address]-21 200 MG Orally prn Active 1 tablet as needed Social History Social History Element Qualifiers Date Reported 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 Status , Is mohawk your primary language? Yes Feb 28, 2016 Flu Vaccine: . no Feb 28, 2016 Where or with whom do you live ? . mother Feb 28, 2016 Depression Screening: . negative Feb 28, 2016 hobbies/sports . dance Feb 28, 2016 children . none Feb 28, 2016 Last Colonoscopy: . never Feb 28, 2016 Tobacco Use: . Are you a: never smoker Feb 28, 2016 Use of recreational / street drugs? . Answer: No Feb 28, 2016 Marital Status: single. Feb 28, 2016 Last Bone Density: . never Feb 28, 2016 Do you drink alcohol? . Status: No Feb 28, 2016 Family history Qualifier Description Comment Date Reported Maternal Grandmother Comment not available Feb 28, 2016 Paternal Grandmother Comment not available Feb 28, 2016 Siblings alive healthy Feb 28, 2016 Maternal Grandfather Comment not available Feb 28, 2016 Children Comment not available Feb 28, 2016 Father alive healthy Feb 28, 2016 Paternal Grandfather Comment not available Feb 28, 2016 Mother alive multiple sclerosis Feb 28, 2016 Other: Comment not available Feb 28, 2016 Vital Signs Date/Time: Feb 28, 2016 Weight 144 lbs Height 62 in Temperature 98.0 F Cardiac Monitoring Heart Rate 88 /min Blood Pressure Diastolic 70 mm Hg Blood Pressure Systolic 116 mm Hg Summary Purpose eClinicalWorks Submission
--- OUTSIDE RECORDS SUMMARY | 2018-08-29 16:05 | XMS REPORT | Summary of Care ---
Author Author [facility] Organization [facility] Address Unknown Phone Unavailable Encounter [facility]) [id number] Date(s): 07/24/17 - 07/24/17 [facility] [address] [place] [address]- Encounter Diagnosis Influenza A (Discharge Diagnosis) - 07/24/17 Influenza due to other identified influenza virus with other respiratory manifes tations (Final) - 07/28/17 Discharge Disposition: Home or Self Care Attending Physician: Baron Gao MD Vital Signs Most recent to 1 2 oldest [Reference Range]: Height 152.4 cm (07/24/17 9:43 AM) Temperature Oral 98.4 DegF 101.1 DegF [96.4-99.1 DegF] (07/24/17 11:58 AM) *HI* (07/24/17 9:43 AM) Blood Pressure 126/76 mmHg [90-140/60-90 mmHg] (07/24/17 9:43 AM) Systolic Blood 118 mmHg Pressure [90-140 (07/24/17 11:58 AM) mmHg] Diastolic Blood 78 mmHg Pressure [60-90 (07/24/17 11:58 AM) mmHg] Respiratory Rate 20 BRMIN 20 BRMIN [14-20 BRMIN] (07/24/17 11:58 AM) (07/24/17 9:43 AM) Peripheral Pulse 88 bpm 124 bpm Rate [60-100 bpm] (07/24/17 11:58 AM) *HI* (07/24/17 9:43 AM) Weight 65.909 kg (07/24/17 9:43 AM) Body Mass Index 28.38 m2 (07/24/17 9:43 AM) Problem List No data available for this section Allergies, Adverse Reactions, Alerts Substance Reaction Severity Status NKDA Active Medications Tylenol 650 mg, Route: PO, Drug form: TAB, ONCE, Dosing Weight 65.909, kg, Priority: STA T, Start date: 07/24/17 11:04:00 INFORMATION SECURITY SPECIALIST, Stop date: 07/24/17 11:04:00 INFORMATION SECURITY SPECIALIST Start Date: 07/24/17 Stop Date: 07/24/17 Status: Completed Tylenol 325 mg oral tablet 650 mg=2 tab, PO, Q6H, PRN Fever, X 5 day, # 24 tab, 0 Refill(s) Start Date: 07/24/17 Stop Date: 07/29/17 Status: Completed Results RAPID Most recent to 1 oldest [Reference Range]: Grp A Strep Scr Negative [Negative] (07/24/17 11:11 AM) VIRAL - SEROLOGY Most recent to 1 oldest [Reference Range]: Influ A [Negative] Positive 1 *ABN* (07/24/17 11:11 AM) Influ B [Negative] Negative (07/24/17 11:11 AM) 1Result Comment: "Significant Findings called to Michelle Schuler at 07/24/2017 11:38 by HT. Read Back OK." Immunizations No data available for this section Procedures No data available for this section Social History Social History Type Response Smoking Status Never smoker; Exposure to Tobacco Smoke None; Cigarette Smoking Last 365 Days No; Reg Smoking Cessation Counseling No entered on: 07/24/17 Assessment and Plan No data available for this section
--- OUTSIDE RECORDS SUMMARY | 2018-08-29 16:05 | XMS REPORT ---
Author Author Tegan Kilpatrick [facility] [employer]ClinicalWorks Address Unknown Phone Unavailable Care Team Providers Care Property Master Name Role Phone Tegan Kilpatrick CP Unavailable Encounters Encounter Location Date Referral to Ortho [facility] Mar 16, 2014 sore throat [facility] Jul 26, 2013 Unknown [facility] Aug 14, 2013 fever 102 and sore throat [facility] December 19, 2013 Social History Social History Element Qualifiers Date Reported Depression Screening: . 11/2013December 19, 2013 Flu Vaccine: . no December 19, 2013 Where or with whom do you live ? . mother December 19, 2013 hobbies/sports . dance December 19, 2013 children . none December 19, 2013 Tobacco Use: . Are you a: never smoker December 19, 2013 Marital Status: single. December 19, 2013 Do you drink alcohol? . 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
--- OUTSIDE RECORDS SUMMARY | 2018-08-29 16:05 | XMS REPORT ---
Author Author Belgica Calix [facility] eClinicalWorks Address Unknown Phone Unavailable Care Team Providers Care Digital Press Operator Name Role Phone Belgica Calix Unavailable Allergies, Adverse Reactions, Alerts Substance Reaction Event Type N.K.D.A. Info Not Available Non Drug Allergy Encounters Encounter Location Date Referral to Ortho [facility] Mar 16, 2014 FEVER [facility] Jul 13, 2014 BLADDER [facility] Aug 13, 2014 BLADDER [facility] October 03, 2014 sore throat [facility] Jul 26, 2013 possible allergic reaction that started last night [facility] May 01, 2015 Unknown [facility] Aug 14, 2013 Ear pain [facility] Aug 26, 2015 fever 102 and sore throat [facility] December 19, 2013 STITCHES REMOVAL [facility] January 11, 2015 Labs [facility] October 09, 2014 EARACHE [facility] October 12, 2014 Problems Problem Type Condition ICD-9 Code Onset Dates Condition Status Assessment Impacted ear wax H61.20 Active Assessment Left ear pain H92.02 Active Medications Medication Code System Code Instructions Start Date End Date Status Dosage Ear Wax Drops [facility] [address]-29 6.5 % Otic Active Unknown Social History Social History Element Qualifiers Date Reported Flu Vaccine: . no Aug 26, 2015 Ethnicity . Status , Is divehi your primary language? Yes Aug 26, 2015 Where or with whom do you live ? . mother Aug 26, 2015 hobbies/sports . dance Aug 26, 2015 children . none Aug 26, 2015 Tobacco Use: . Are you a: never smoker Aug 26, 2015 Marital Status: single. Aug 26, 2015 Do you drink alcohol? . Status: No Aug 26, 2015 Occupation: . student Aug 26, 2015 Family history Qualifier Description Comment Date Reported Maternal Grandmother Comment not available Aug 26, 2015 Paternal Grandmother Comment not available Aug 26, 2015 Siblings alive healthy Aug 26, 2015 Maternal Grandfather Comment not available Aug 26, 2015 Children Comment not available Aug 26, 2015 Father alive healthy Aug 26, 2015 Paternal Grandfather Comment not available Aug 26, 2015 Mother alive multiple sclerosis Aug 26, 2015 Other: Comment not available Aug 26, 2015 Vital Signs Date/Time: Aug 26, 2015 Weight 142 lbs Height 62 in Cardiac Monitoring Heart Rate 70 /min Blood Pressure Diastolic 68 mm Hg Blood Pressure Systolic 115 mm Hg Summary Purpose eClinicalWorks Submission
--- OUTSIDE RECORDS SUMMARY | 2018-08-29 16:05 | XMS REPORT | Summary of Care ---
Author Author [facility] Organization [facility] Address Unknown Phone Unavailable Encounter RADHA Corona(TRAE) [id number] Date(s): 06/21/17 - 06/21/17 [facility] [address] [place] [address]- Discharge Diagnosis: Viral URI with cough Discharge Disposition: Home or Self Care Attending Physician: Wilberto Cartagena MD Vital Signs Most recent to 1 2 oldest [Reference Range]: Height 152.4 cm (06/21/17 12:09 AM) Temperature Oral 98.4 DegF [96.4-99.1 DegF] (06/21/17 12:09 AM) Blood Pressure 106/71 mmHg 127/83 mmHg [90-140/60-90 mmHg] (06/21/17 3:01 AM) (06/21/17 12:09 AM) Respiratory Rate 18 BRMIN 18 BRMIN [14-20 BRMIN] (06/21/17 3:01 AM) (06/21/17 12:09 AM) Peripheral Pulse 86 bpm 93 bpm Rate [60-100 bpm] (06/21/17 3:01 AM) (06/21/17 12:09 AM) Weight 63.636 kg (06/21/17 12:09 AM) Body Mass Index 27.4 m2 (06/21/17 12:09 AM) Problem List No data available for this section Allergies, Adverse Reactions, Alerts Substance Reaction Severity Status NKDA Active Medications Tessalon 200 mg oral capsule 200 mg=1 cap, PO, TID, X 7 day, # 21 cap, 0 Refill(s) Start Date: 06/21/17 Stop Date: 06/28/17 Status: Ordered Results RAPID Most recent to 1 oldest [Reference Range]: Grp A Strep Scr Negative [Negative] (06/21/17 1:57 AM) Immunizations No data available for this section Procedures No data available for this section Social History Social History Type Response Smoking Status Never smoker; Exposure to Tobacco Smoke None; Cigarette Smoking Last 365 Days No; Reg Smoking Cessation Counseling No Assessment and Plan No data available for this section
--- OUTSIDE RECORDS SUMMARY | 2018-08-29 16:05 | XMS REPORT | Summary of Care ---
Author Organization Unknown Address Unknown Phone Unavailable Encounter RADHA Corona([facility]) [id number] Date(s): 01/02/15 - 01/02/15 [facility] [address] [place] [address]- [phone] Discharge Diagnosis: Laceration Discharge Disposition: Home Physician Attending: Aime Garcia MD Vital Signs Most recent to 1 2 oldest [Reference Range]: Height 152.4 cm (01/02/15 7:38 PM) Temperature Oral 98.4 DegF 98.3 DegF [96.8-99.7 DegF] (01/02/15 9:00 PM) (01/02/15 7:38 PM) Blood Pressure 120/70 mmHg 129/83 mmHg [90-138/45-84 mmHg] (01/02/15 9:00 PM) (01/02/15 7:38 PM) Respiratory Rate 14 BRMIN 20 BRMIN [14-20 BRMIN] (01/02/15 9:00 PM) (01/02/15 7:38 PM) Peripheral Pulse 85 bpm 89 bpm Rate [55-90 bpm] (01/02/15 9:00 PM) (01/02/15 7:38 PM) Weight 54.545 kg (01/02/15 7:38 PM) Body Mass Index 23.48 m2 (01/02/15 7:38 PM) Problem List No data available for this section Allergies, Adverse Reactions, Alerts Substance Reaction Severity Status NKDA Active Medications No data available for this section Results No data available for this section Immunizations No data available for this section Procedures No data available for this section Social History Social History Type Response Smoking Status Never smoker; Exposure to Tobacco Smoke None; Cigarette Smoking Last 365 Days No; Reg Smoking Cessation Counseling No Assessment and Plan No data available for this section
--- OUTSIDE RECORDS SUMMARY | 2018-08-29 16:05 | XMS REPORT ---
Author Author Belgica Calix [facility] eClinicalWorks Address Unknown Phone Unavailable Care Team Providers Care Network Support Engineer Name Role Phone Belgica Calix Unavailable Allergies, Adverse Reactions, Alerts Substance Reaction Event Type N.K.D.A. Info Not Available Non Drug Allergy Encounters Encounter Location Date Referral to Ortho [facility] Mar 16, 2014 FEVER [facility] Jul 13, 2014 BLADDER [facility] Aug 13, 2014 BLADDER [facility] October 03, 2014 sore throat [facility] Jul 26, 2013 Unknown [facility] Aug 14, 2013 fever 102 and sore throat [facility] December 19, 2013 STITCHES REMOVAL [facility] January 11, 2015 Labs [facility] October 09, 2014 EARACHE [facility] October 12, 2014 Bladder [facility] September 18, 2015 possible allergic reaction that started last night [facility] May 01, 2015 Ear pain [facility] Aug 26, 2015 Problems Problem Type Condition ICD-9 Code Onset Dates Condition Status Assessment UTI (urinary tract infection) N39.0 Active Assessment Burning with urination R30.0 Active Assessment Encounter for oral contraception initial prescription Z30.011 Active Medications Medication Code System Code Instructions Start Date End Date Status Dosage [facility] [address]-12 6.5 % Otic Active Unknown [facility] [address]-69 0.15-30 MG-MCG Orally Once a day September 18, 2015 Active 1 tablet Advil MEDISPAN [address]-92 200 MG Orally prn Active 1 tablet as needed Macrobid [facility] [address]-53 100 mg Orally twice a day September 18, 2015 September 25, 2015 Active 1 capsule with food Social History Social History Element Qualifiers Date Reported Flu Vaccine: . no September 18, 2015 Ethnicity . Status , Is mozambican your primary language? Yes September 18, 2015 Where or with whom do you live ? . mother September 18, 2015 hobbies/sports . dance September 18, 2015 children . none September 18, 2015 Tobacco Use: . Are you a: never smoker September 18, 2015 Marital Status: single. September 18, 2015 Do you drink alcohol? . Status: No September 18, 2015 Occupation: . student September 18, 2015 Family history Qualifier Description Comment Date Reported Maternal Grandmother Comment not available September 18, 2015 Paternal Grandmother Comment not available September 18, 2015 Siblings alive healthy September 18, 2015 Maternal Grandfather Comment not available September 18, 2015 Children Comment not available September 18, 2015 Father alive healthy September 18, 2015 Paternal Grandfather Comment not available September 18, 2015 Mother alive multiple sclerosis September 18, 2015 Other: Comment not available September 18, 2015 Vital Signs Date/Time: September 18, 2015 Weight 141 lbs Height 62 in Cardiac Monitoring Heart Rate 75 /min Blood Pressure Diastolic 70 mm Hg Blood Pressure Systolic 106 mm Hg Summary Purpose eClinicalWorks Submission
--- OUTSIDE RECORDS SUMMARY | 2018-08-29 16:05 | XMS REPORT ---
Author Author Belgica Calix [facility] eClinicalWorks Address Unknown Phone Unavailable Care Team Providers Care Director Of Strategic Marketing Name Role Phone Belgica Calix Unavailable Allergies, Adverse Reactions, Alerts Substance Reaction Event Type N.K.D.A. Info Not Available Non Drug Allergy Encounters Encounter Location Date Referral to Ortho [facility] Mar 16, [address] [facility] Jul 13, [address] [facility] Aug 13, [address] [facility] October 03, [address] [facility] Jul 26, [address] [facility] Aug 14, 2013 fever [address] [facility] December 19, [address] [facility] January 11, [address] [facility] October 09, [address] [facility] October 12, [address] [facility] Feb 28, 2016 Sore's inside lip/mouth [facility] Mar 25, [address] [facility] November 07, [address] [facility] December 09, [address] [facility] September 18, [address] [facility] September 20, 2015 possible allergic reaction that started last night [facility] May 01, [address] 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 Status , Is bulgarian your primary language? Yes Mar 25, 2016 Flu Vaccine: . no , Refuse for 2016 Mar 25, 2016 Where or with whom do you live ? . mother Mar 25, 2016 Depression Screening: . negative Mar 25, 2016 hobbies/sports . dance Mar 25, 2016 children . none Mar 25, 2016 Last Colonoscopy: . never Mar 25, 2016 Tobacco Use: . Are you a: never smoker Mar 25, 2016 Use of recreational / street drugs? . Answer: No Mar 25, 2016 Marital Status: single. Mar 25, 2016 Last Bone Density: . never Mar 25, 2016 Do you drink alcohol? . Status: No Mar 25, 2016 Family history Qualifier Description Comment Date Reported Maternal Grandmother Comment not available Mar 25, 2016 Paternal Grandmother Comment not available Mar 25, 2016 Siblings alive healthy Mar 25, 2016 Maternal Grandfather Comment not available Mar 25, 2016 Children Comment not available Mar 25, 2016 Father alive healthy Mar 25, 2016 Paternal Grandfather Comment not available Mar 25, 2016 Mother alive multiple sclerosis Mar 25, 2016 Other: Comment not available Mar 25, 2016 Vital Signs Date/Time: Mar 25, 2016 Weight 144 lbs Height 62 in Cardiac Monitoring Heart Rate 81 /min Blood Pressure Diastolic 70 mm Hg Blood Pressure Systolic 102 mm Hg Summary Purpose eClinicalWorks Submission
--- OUTSIDE RECORDS SUMMARY | 2018-08-29 16:05 | XMS REPORT ---
Author Author Tosha Desouza Organization eClinicalWorks Address Unknown Phone Unavailable Care Team Providers Care Burglar Alarm Installer Name Role Phone Tosha Desouza CP Unavailable Allergies, Adverse Reactions, Alerts Substance Reaction Event Type N.K.D.A. Info Not Available Non Drug Allergy Encounters Encounter Location Date sore throat [facility] Jul 26, 2013 Unknown [facility] Aug 14, 2013 fever 102 and sore throat [facility] December 19, 2013 Problems Problem Type Condition ICD-9 Code Onset Dates Condition Status Assessment Sore throat 462 Active Assessment Fever 780.60 Active Assessment Pharyngitis 462 Active Medications Medication Code System Code Instructions Start Date End Date Status Dosage Augmentin MEDISPAN [address]-35 500-125 MG Orally Twice a day December 19, 2013 December 26, 2013 Active 1 tablet Sinus Congestion/Pain Day/Nght MEDISPAN 14403-60756 2-5-325 & 5-325 MG Orally Active as [...] 2013 Occupation: . student December 19, 2013 Family history Qualifier Description Comment Date Reported Father alive healthy December 19, 2013 Mother alive multiple sclerosis December 19, 2013 Siblings alive healthy December 19, 2013 Vital Signs Date/Time: December 19, 2013 Weight 124 lbs Height 60 in Temperature 99.1 F Cardiac Monitoring Heart Rate 96 /min Blood Pressure Diastolic 78 mm Hg Blood Pressure Systolic 100 mm Hg Results RAPID STREP Summary Purpose eClinicalWorks Submission
--- OUTSIDE RECORDS SUMMARY | 2018-08-29 16:05 | XMS REPORT ---
Author Author Belgica Calix [facility] eClinicalWorks Address Unknown Phone Unavailable Care Team Providers Care Hemotherapist Name Role Phone Belgica Calix Unavailable Allergies, Adverse Reactions, Alerts Substance Reaction Event Type N.K.D.A. Info Not Available Non Drug Allergy Encounters Encounter Location Date Referral to Ortho [facility] Mar 16, 2014 FEVER [facility] Jul 13, 2014 BLADDER [facility] Aug 13, 2014 BLADDER [facility] October 03, 2014 sore throat [facility] Jul 26, 2013 Unknown [facility] Aug 14, 2013 fever 102 and sore throat [facility] December 19, 2013 STITCHES REMOVAL [facility] January 11, 2015 anxiety [facility] August 31, 2016 Labs [facility] October 09, 2014 EARACHE [facility] October 12, 2014 Sick Visit [facility] Feb 28, 2016 Sore's inside lip/mouth [facility] Mar 25, 2016 Unknown [facility] November 07, 2015 Bladder problems [facility] December 09, 2015 Bladder [facility] September 18, 2015 Unknown [facility] September 20, 2015 possible allergic reaction that started last night [facility] May 01, 2015 Ear pain [facility] Aug 26, 2015 earache [facility] Jul 02, 2016 Problems Problem Type Condition ICD-9 Code Onset Dates Condition Status Problem Depression, unspecified depression type F32.9 Active Problem Seasonal allergic rhinitis, unspecified allergic rhinitis trigger J30.2 Active Problem Anxiety disorder, unspecified F41.9 Active Assessment Anxiety disorder, unspecified F41.9 Active Assessment Depression, unspecified depression type F32.9 Active Medications Medication Code System Code Instructions Start Date End Date Status Dosage Lexapro MEDISPAN [address]-21 10 MG Orally Once a day August 31, 2016 Active 1 tablet Social History Social History Element Qualifiers Date Reported 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 none August 31, 2016 Where or with whom do you live ? . mother August 31, 2016 Tobacco Use: . Are you a: never smoker August 31, 2016 Ethnicity . Status , Is gambian your primary language? Yes August 31, 2016 Use of recreational / street drugs? . Answer: No August 31, 2016 Do you have pets? . Status: Yes, Type: dog(s), cat(s) August 31, 2016 hobbies/sports . dance August 31, 2016 Depression Screening: . positive August 31, 2016 Marital Status: single. August 31, 2016 Last Bone Density: . never August 31, 2016 Caffeine intake? . Status: Yes, What type: Coffee, Tea, Soft Drinks August 31, 2016 Do you exercise? . Answer: Yes, Type: cardio, walking, running, weight lifting, dancing August 31, 2016 Last Colonoscopy: . never August 31, 2016 Flu Vaccine: . no , Refuse for 2016 August 31, 2016 Do you drink alcohol? . Status: No August 31, 2016 Vital Signs Date/Time: August 31, 2016 Weight 155 lbs Height 62 in Cardiac Monitoring Heart Rate 87 /min Blood Pressure Diastolic 84 mm Hg Blood Pressure Systolic 122 mm Hg Summary Purpose eClinicalWorks Submission
--- OUTSIDE RECORDS SUMMARY | 2018-08-29 16:05 | XMS REPORT ---
Author Author Tosha Desouza Organization eClinicalWorks Address Unknown Phone Unavailable Care Team Providers Care Division Plant Engineer Name Role Phone Tosha Desouza CP Unavailable Allergies, Adverse Reactions, Alerts Substance Reaction Event Type N.K.D.A. Info Not Available Non Drug Allergy Encounters Encounter Location Date Referral to Ortho [facility] Mar 16, 2014 FEVER [facility] Jul 13, 2014 sore throat [facility] Jul 26, 2013 Unknown [facility] Aug 14, 2013 fever 102 and sore throat [facility] December 19, 2013 Problems Problem Type Condition ICD-9 Code Onset Dates Condition Status Assessment Cough 786.2 Active Assessment Fever 780.60 Active Assessment Acute pharyngitis 462 Active Assessment Scabies 133.0 Active Social History Social History Element Qualifiers Date Reported Depression Screening: . 11/2013Jul 13, 2014 Flu Vaccine: . no Jul 13, 2014 Where or with whom do you live ? . mother Jul 13, 2014 hobbies/sports . dance Jul 13, 2014 children . none Jul 13, 2014 Tobacco Use: . Are you a: never smoker Jul 13, 2014 Marital Status: single. Jul 13, 2014 Do you drink alcohol? . Status: No Jul 13, 2014 Occupation: . student Jul 13, 2014 Family history Qualifier Description Comment Date Reported Father alive healthy Jul 13, 2014 Mother alive multiple sclerosis Jul 13, 2014 Siblings alive healthy Jul 13, 2014 Vital Signs Date/Time: Jul 13, 2014 Weight 129 lbs Height 61 in Temperature 99.0 F Summary Purpose eClinicalWorks Submission
--- OUTSIDE RECORDS SUMMARY | 2018-08-29 16:05 | XMS REPORT ---
Author Author [facility] Address Unknown Phone Unavailable Care Team Providers Care Roller Hand Name Role Phone Unavailable Unavailable Payers Payer Name Policy Type Policy Number Effective Date Expiration Date Problems This patient has no known problems. Allergies, Adverse Reactions, Alerts Allergy Name Allergy Type Status Severity Reaction(s) Onset Date Inactive Date Treating Clinician Comments No Known Allergies DA Active U 2018-08-05 00:00:00 Medications This patient has no known medications. Results Test Description Test Time Test Comments Text Results Atomic Results Result Comments URINE HCG TRIAGE (ER ONLY) 2018-08-06 15:22:00 URINE HCG TRIAGE (ER ONLY) (test code=HCGTRIAGE) Negative Urine Test Result: NEGATIVEAre internal controls (presence of a contro l line & clear background) OK? YLot # of HCG Test Kit: [id number] Date of Kit: [id number] Performed by: [employer] on: 08/06/18URINE HCG TRIAGE (ER ONLY)2018-08-06 15:22:00* Test Item Value Reference Range Comments URINE HCG TRIAGE (ER ONLY) (test code=HCGTRIAGE) Negative Urine Test Result: NEGATIVEAre internal controls (presence of a contro l line & clear background) OK? YLot # of HCG Test Kit: [id number] Date of Kit: [id number] Performed by: [employer] on: 08/06/18 COMPREHENSIVE METABOLIC [id number] 23:59:00* Test Item Value Reference Range Comments SODIUM (test code=NA) 140 mmol/L 136-145 POTASSIUM (test code=K) 4.4 mmol/L 3.5-5.1 CHLORIDE (test code=CL) 107.0 mmol/L 98-107 CARBON DIOXIDE (test code=CO2) 21.0 mmol/L 21-32 ANION GAP (test code=GAP) 16.4 10-20 GLUCOSE (test code=GLU) 90 mg/dL 74-106 BLOOD UREA NITROGEN (test code=BUN) 13 mg/dL 7-18 GLOMERULAR FILTRATION RATE (test code=GFR) > 60 mL/min >=60 Estimated GFR by using Modified MDRD formula.Chronic kidney disease is defined as either kidney damageor GFR <60 mL/min/1.73 m2 for >3 months. CREATININE (test code=CREAT) 0.60 mg/dL 0.55-1.02 Note change in reference range due to change in reagent. BUN/CREATININE RATIO (test code=BUN/CREA) 20.6 10-20 TOTAL PROTEIN (test code=PROT) 7.7 gram/dL 6.4-8.2 ALBUMIN (test code=ALB) 3.9 g/dL 3.4-5.0 GLOBULIN (test code=GLOB) 3.8 gram/dL 2.7-4.2 ALBUMIN/GLOBULIN RATIO (test code=A/G) 1.0 0.75-1.50 CALCIUM (test code=CA) 8.4 mg/dL 8.5-10.1 BILIRUBIN TOTAL (test code=BILT) 0.40 mg/dL 0.0-1.0 SGOT/AST (test code=AST) 29 IUnit/L 15-37 SGPT/ALT (test code=ALT) 21 IUnit/L 12-78 ALKALINE PHOSPHATASE TOTAL (test code=ALKP) 74 IUnit/L 45-117 Note change in reference range due to change in reagent. [id number] 23:59:00* Test Item Value Reference Range Comments ACETAMINOPHEN (test code=ACET) < 10 mcg/mL 10-30 A RANGE OF 10-30 mcg/mL IS A THERAPEUTIC RANGE. TOXIC CONCENTRATIONS: >150 mcg/mL AT 4 HOURS AFTER INGESTION >=50 mcg/mL AT 12 HOURS AFTER INGESTION [id number] 23:59:00* Test Item Value Reference Range Comments SALICYLATE (test code=JENARO) < 1.7 mg/dL 2.8-20.0 [id number] 23:59:00* Test Item Value Reference Range Comments ALCOHOL (test code=ALC) < 3 mg/dL 0.0-3.0 INTERPRETIVE DATA NOTE: POSITIVE SCREENING RESULTS SHOULD BE CONSIDERED PRESUMPTIVE.WHEN COLLECTED FOR MEDICAL PURPOSES ONLY. SPECIMEN WILL NOTBE COLLECTED BY CHAIN OF CUSTODY.IF A CONFIRMATION OF POSITIVE RESULTS IS DESIRED, ACONFIRMATION TEST MUST BE REQUESTED BY THE PHYSICIAN AT ANADDITIONAL CHARGE TO THE PATIENT. COMPREHENSIVE METABOLIC [id number] 23:52:00* Test Item Value Reference Range Comments SODIUM (test code=NA) 140 mmol/L 136-145 POTASSIUM (test code=K) 4.4 mmol/L 3.5-5.1 CHLORIDE (test code=CL) 107.0 mmol/L 98-107 CARBON DIOXIDE (test code=CO2) mmol/L 21-32 ANION GAP (test code=GAP) 10-20 GLUCOSE (test code=GLU) mg/dL 74-106 BLOOD UREA NITROGEN (test code=BUN) mg/dL 7-18 GLOMERULAR FILTRATION RATE (test code=GFR) mL/min >=60 CREATININE (test code=CREAT) mg/dL 0.55-1.02 BUN/CREATININE RATIO (test code=BUN/CREA) 10-20 TOTAL PROTEIN (test code=PROT) gram/dL 6.4-8.2 ALBUMIN (test code=ALB) g/dL 3.4-5.0 GLOBULIN (test code=GLOB) gram/dL 2.7-4.2 ALBUMIN/GLOBULIN RATIO (test code=A/G) 0.75-1.50 CALCIUM (test code=CA) mg/dL 8.5-10.1 BILIRUBIN TOTAL (test code=BILT) mg/dL 0.0-1.0 SGOT/AST (test code=AST) IUnit/L 15-37 SGPT/ALT (test code=ALT) IUnit/L 12-78 ALKALINE PHOSPHATASE TOTAL (test code=ALKP) IUnit/L 45-117 [id number] 23:52:00* Test Item Value Reference Range Comments ACETAMINOPHEN (test code=ACET) mcg/mL 10-30 [id number] 23:52:00* Test Item Value Reference Range Comments SALICYLATE (test code=JENARO) mg/dL 2.8-20.0 [id number] 23:52:00* Test Item Value Reference Range Comments ALCOHOL (test code=ALC) mg/dL 0-3 HCG SERUM [id number] 23:52:00* Test Item Value Reference Range Comments HCG SERUM QUAL (test code=HCGQL) NEGATIVE NEGATIVE This HCGQL test is NOT applicable for MALE patients.Check with nurse about probable order error.If Tumor Marker Test needed, nurse should order test "HCGTU"(Test #[id number]) CBC W/AUTO [id number] 23:33:00* Test Item Value Reference Range Comments WHITE BLOOD CELL (test code=WBC) 12.4 K/mm3 4.5-12.5 RED BLOOD CELL (test code=RBC) 4.92 mill/mm3 3.7-5.2 HEMOGLOBIN (test code=HGB) 13.7 gram/dL 11.5-15.5 HEMATOCRIT (test code=HCT) 42.3 % 36.0-46.0 MEAN CELL VOLUME (test code=MCV) 86.0 fL 80-98 MEAN CELL HGB (test code=MCH) 27.8 picogram 27.0-33.0 MEAN CELL HGB CONCETRATION (test code=MCHC) 32.4 gram/dL 33.0-36.0 RED CELL DISTRIBUTION WIDTH (test code=RDW) 13.2 % 11.6-16.2 RED CELL DISTRIBUTION WIDTH SD (test code=RDW-SD) 41.0 fL 37.0-51.0 PLATELET COUNT (test code=PLT) 282 K/mm3 150-450 MEAN PLATELET VOLUME (test code=MPV) 11.1 fL 6.7-11.0 NEUTROPHIL % (test code=NT%) 68.5 % 39.0-69.0 IMMATURE GRANULOCYTE % (test code=IG%) 0.4 % 0.0-5.0 LYMPHOCYTE % (test code=LY%) 22.9 % 25.0-55.0 MONOCYTE % (test code=MO%) 6.7 % 0.0-10.0 EOSINOPHIL % (test code=EO%) 1.3 % 0.0-5.0 BASOPHIL % (test code=BA%) 0.2 % 0.0-1.0 NUCLEATED RBC % (test code=NRBC%) 0.0 % 0-0 NEUTROPHIL # (test code=NT#) 8.47 K/mm3 1.8-7.7 IMMATURE GRANULOCYTE # (test code=IG#) 0.05 x10 3/uL 0-0.03 LYMPHOCYTE # (test code=LY#) 2.84 K/mm3 1.0-5.0 MONOCYTE # (test code=MO#) 0.83 K/mm3 0-0.8 EOSINOPHIL # (test code=EO#) 0.16 K/mm3 0.0-0.5 BASOPHIL # (test code=BA#) 0.03 K/mm3 0.0-0.2 NUCLEATED RBC # (test code=NRBC#) 0.00 K/mm3 0.0-0.1 CBC W/AUTO [id number] 23:32:00* Test Item Value Reference Range Comments WHITE BLOOD CELL (test code=WBC) K/mm3 4.5-12.5 RED BLOOD CELL (test code=RBC) mill/mm3 3.7-5.2 HEMOGLOBIN (test code=HGB) 13.7 gram/dL 11.5-15.5 HEMATOCRIT (test code=HCT) 42.3 % 36.0-46.0 MEAN CELL VOLUME (test code=MCV) fL 80-98 MEAN CELL HGB (test code=MCH) picogram 27.0-33.0 MEAN CELL HGB CONCETRATION (test code=MCHC) gram/dL 33.0-36.0 RED CELL DISTRIBUTION WIDTH (test code=RDW) % 11.6-16.2 RED CELL DISTRIBUTION WIDTH SD (test code=RDW-SD) fL 37.0-51.0 PLATELET COUNT (test code=PLT) K/mm3 150-450 MEAN PLATELET VOLUME (test code=MPV) fL 6.7-11.0 NEUTROPHIL % (test code=NT%) % 39.0-69.0 IMMATURE GRANULOCYTE % (test code=IG%) % 0.0-5.0 LYMPHOCYTE % (test code=LY%) % 25.0-55.0 MONOCYTE % (test code=MO%) % 0.0-10.0 EOSINOPHIL % (test code=EO%) % 0.0-5.0 BASOPHIL % (test code=BA%) % 0.0-1.0 NEUTROPHIL # (test code=NT#) K/mm3 1.8-7.7 LYMPHOCYTE # (test code=LY#) K/mm3 1.0-5.0 MONOCYTE # (test code=MO#) K/mm3 0-0.8 EOSINOPHIL # (test code=EO#) K/mm3 0.0-0.5 BASOPHIL # (test code=BA#) K/mm3 0.0-0.2 URINALYSIS [id number] 23:32:00* Test Item Value Reference Range Comments UA COLOR (test code=COLU) LIGHT YELLOW YELLOW UA APPEARANCE (test code=APPU) CLEAR CLEAR UA GLUCOSE DIPSTICK (test code=DGLUU) NEGATIVE mg/dL NEGATIVE UA BILIRUBIN DIPSTICK (test code=BILU) NEGATIVE mg/dL NEGATIVE UA KETONE DIPSTICK (test code=KETU) Negative mg/dL NEGATIVE UA SPECIFIC GRAVITY (test code=SGU) 1.018 1.001-1.035 UA BLOOD DIPSTICK (test code=BECKIE) Negative NEGATIVE UA PH DIPSTICK (test code=MANE) 7.0 5.0-8.0 UA PROTEIN DIPSTICK (test code=PROU) Negative mg/dL NEGATIVE UA UROBILINIOGEN DIPSTICK (test code=URO) NEGATIVE mg/dL NEGATIVE UA NITRITE DIPSTICK (test code=DEA) NEGATIVE NEGATIVE UA LEUKOCYTE ESTERASE W REFLEX (test code=LEUUR) NEGATIVE NEGATIVE UA WBC (test code=WBCU) 0-5 #/HPF 0-5 UA RBC (test code=RBCU) 0-2 #/HPF 0-5 UA EPITHELIAL CELLS (test code=EPIU) FEW per HPF FEW UA MUCUS (test code=MUCU) FEW #/LPF FEW Urine Source? Clean CatchDRUGS OF ABUSE SCREEN [id number] 23:32:00* Test Item Value Reference Range Comments URN COCAINE (test code=COCAURN) NEGATIVE <300 ng/mL URN CANNABINOIDS (test code=CANNABURN) NEGATIVE <50 ng/mL URN AMPHETAMINE (test code=AMPHETURN) NEGATIVE <1000 ng/mL URN BARBITURATE (test code=BARBITURN) NEGATIVE <200 ng/mL URN BENZODIAZEPINE (test code=BENZOURN) NEGATIVE <200 ng/mL URN OPIATES (test code=OPIATURN) NEGATIVE <300 ng/mL URN PHENCYCLIDINE (PCP) (test code=PHENCURN) NEGATIVE <25 ng/mL URN METHADONE (test code=METHAURN) NEGATIVE <300 ng/mL Urine Source? Clean CatchURINALYSIS [id number] 23:15:00* Test Item Value Reference Range Comments UA COLOR (test code=COLU) LIGHT YELLOW YELLOW UA APPEARANCE (test code=APPU) CLEAR CLEAR UA GLUCOSE DIPSTICK (test code=DGLUU) NEGATIVE mg/dL NEGATIVE UA BILIRUBIN DIPSTICK (test code=BILU) NEGATIVE mg/dL NEGATIVE UA KETONE DIPSTICK (test code=KETU) Negative mg/dL NEGATIVE UA SPECIFIC GRAVITY (test code=SGU) 1.018 1.001-1.035 UA BLOOD DIPSTICK (test code=BECKIE) Negative NEGATIVE UA PH DIPSTICK (test code=MANE) 7.0 5.0-8.0 UA PROTEIN DIPSTICK (test code=PROU) Negative mg/dL NEGATIVE UA UROBILINIOGEN DIPSTICK (test code=URO) NEGATIVE mg/dL NEGATIVE UA NITRITE DIPSTICK (test code=EDA) NEGATIVE NEGATIVE UA LEUKOCYTE ESTERASE W REFLEX (test code=LEUUR) NEGATIVE NEGATIVE UA WBC (test code=WBCU) 0-5 #/HPF 0-5 UA RBC (test code=RBCU) 0-2 #/HPF 0-5 UA EPITHELIAL CELLS (test code=EPIU) FEW per HPF FEW UA MUCUS (test code=MUCU) FEW #/LPF FEW Urine Source? Clean CatchDRUGS OF ABUSE SCREEN [id number] 23:15:00* Test Item Value Reference Range Comments URN COCAINE (test code=COCAURN) <300 ng/mL URN CANNABINOIDS (test code=CANNABURN) <50 ng/mL URN AMPHETAMINE (test code=AMPHETURN) <1000 ng/mL URN BARBITURATE (test code=BARBITURN) <200 ng/mL URN BENZODIAZEPINE (test code=BENZOURN) <200 ng/mL URN OPIATES (test code=OPIATURN) <300 ng/mL URN PHENCYCLIDINE (PCP) (test code=PHENCURN) <25 ng/mL URN METHADONE (test code=METHAURN) <300 ng/mL Urine Source? Clean CatchURINALYSIS [id number] 23:14:00* Test Item Value Reference Range Comments UA COLOR (test code=COLU) LIGHT YELLOW YELLOW UA APPEARANCE (test code=APPU) CLEAR CLEAR UA GLUCOSE DIPSTICK (test code=DGLUU) NEGATIVE mg/dL NEGATIVE UA BILIRUBIN DIPSTICK (test code=BILU) NEGATIVE mg/dL NEGATIVE UA KETONE DIPSTICK (test code=KETU) Negative mg/dL NEGATIVE UA SPECIFIC GRAVITY (test code=SGU) 1.018 1.001-1.035 UA BLOOD DIPSTICK (test code=BECKIE) Negative NEGATIVE UA PH DIPSTICK (test code=MANE) 7.0 5.0-8.0 UA PROTEIN DIPSTICK (test code=PROU) Negative mg/dL NEGATIVE UA UROBILINIOGEN DIPSTICK (test code=URO) NEGATIVE mg/dL NEGATIVE UA NITRITE DIPSTICK (test code=DEA) NEGATIVE NEGATIVE UA LEUKOCYTE ESTERASE W REFLEX (test code=LEUUR) NEGATIVE NEGATIVE UA WBC (test code=WBCU) 0-5 #/HPF 0-5 UA RBC (test code=RBCU) 0-2 #/HPF 0-5 UA EPITHELIAL CELLS (test code=EPIU) FEW per HPF FEW Urine Source? Clean CatchDRUGS OF ABUSE SCREEN [id number] 23:14:00* Test Item Value Reference Range Comments URN COCAINE (test code=COCAURN) <300 ng/mL URN CANNABINOIDS (test code=CANNABURN) <50 ng/mL URN AMPHETAMINE (test code=AMPHETURN) <1000 ng/mL URN BARBITURATE (test code=BARBITURN) <200 ng/mL URN BENZODIAZEPINE (test code=BENZOURN) <200 ng/mL URN OPIATES (test code=OPIATURN) <300 ng/mL URN PHENCYCLIDINE (PCP) (test code=PHENCURN) <25 ng/mL URN METHADONE (test code=METHAURN) <300 ng/mL Urine Source? Clean CatchURINALYSIS [id number] 23:13:00* Test Item Value Reference Range Comments UA COLOR (test code=COLU) LIGHT YELLOW YELLOW UA APPEARANCE (test code=APPU) CLEAR CLEAR UA GLUCOSE DIPSTICK (test code=DGLUU) NEGATIVE mg/dL NEGATIVE UA BILIRUBIN DIPSTICK (test code=BILU) NEGATIVE mg/dL NEGATIVE UA KETONE DIPSTICK (test code=KETU) Negative mg/dL NEGATIVE UA SPECIFIC GRAVITY (test code=SGU) 1.018 1.001-1.035 UA BLOOD DIPSTICK (test code=BECKIE) Negative NEGATIVE UA PH DIPSTICK (test code=MANE) 7.0 5.0-8.0 UA PROTEIN DIPSTICK (test code=PROU) Negative mg/dL NEGATIVE UA UROBILINIOGEN DIPSTICK (test code=URO) NEGATIVE mg/dL NEGATIVE UA NITRITE DIPSTICK (test code=DEA) NEGATIVE NEGATIVE UA LEUKOCYTE ESTERASE W REFLEX (test code=LEUUR) NEGATIVE NEGATIVE UA WBC (test code=WBCU) per HPF 0-5 Urine Source? Clean CatchDRUGS OF ABUSE SCREEN [id number] 23:13:00* Test Item Value Reference Range Comments URN COCAINE (test code=COCAURN) <300 ng/mL URN CANNABINOIDS (test code=CANNABURN) <50 ng/mL URN AMPHETAMINE (test code=AMPHETURN) <1000 ng/mL URN BARBITURATE (test code=BARBITURN) <200 ng/mL URN BENZODIAZEPINE (test code=BENZOURN) <200 ng/mL URN OPIATES (test code=OPIATURN) <300 ng/mL URN PHENCYCLIDINE (PCP) (test code=PHENCURN) <25 ng/mL URN METHADONE (test code=METHAURN) <300 ng/mL Urine Source? Clean Catch
--- OUTSIDE RECORDS SUMMARY | 2018-08-29 16:05 | XMS REPORT ---
Author Author Belgica Calix [facility] eClinicalWorks Address Unknown Phone Unavailable Care Team Providers Care Senior Economist Name Role Phone Belgica Calix CP Unavailable Encounters Encounter Location Date Referral to [facility] Mar 16, 2014 FEVER [facility] Jul 13, [address] [facility] Aug 13, [address] [facility] October 03, [address] [facility] Jul 26, [address] [facility] Aug 14, 2013 fever 102 and sore throat [facility] December 19, [address] [facility] January 11, [address] [facility] October 09, [address] [facility] October 12, [address] [facility] November 07, [address] [facility] September 18, [address] [facility] September 20, 2015 possible allergic reaction that started last night [facility] May 01, [address] [facility] Aug 26, 2015 Social History Social History Element Qualifiers Date Reported Flu Vaccine: . no September 18, 2015 Ethnicity . Status , Is czech your primary language? Yes September 18, 2015 [...] 2015 Occupation: . student September 18, 2015 Summary Purpose eClinicalWorks Submission
--- OUTSIDE RECORDS SUMMARY | 2018-08-29 16:05 | XMS REPORT ---
Author Author Belgica Calix [facility] eClinicalWorks Address Unknown Phone Unavailable Care Team Providers Care Offset Press Assistant Name Role Phone Belgica Calix CP Unavailable Encounters Encounter Location Date Referral to [facility] Mar 16, 2014 FEVER [facility] Jul 13, 2014 BLADDER [facility] Aug 13, 2014 BLADDER [facility] October 03, 2014 sore throat [facility] Jul 26, 2013 Unknown [facility] Aug 14, 2013 fever 102 and sore throat [facility] December 19, 2013 STITCHES REMOVAL [facility] January 11, 2015 Labs [facility] October 09, 2014 EARACHE [facility] October 12, 2014 Bladder [facility] September 18, 2015 Unknown [facility] September 20, 2015 possible allergic reaction that started last night [facility] May 01, 2015 Ear pain [facility] Aug 26, 2015 Medications Medication Code System Code Instructions Start Date End Date Status Dosage Diflucan MEDISPAN [address]-99 200 MG Orally Once a day September 20, 2015 September 21, 2015 Active 1 tablet Social History Social History Element Qualifiers Date Reported Flu Vaccine: . no September 18, 2015 Ethnicity . Status , Is nauruan your primary language? Yes September 18, 2015 [...]
--- OUTSIDE RECORDS SUMMARY | 2018-08-29 16:05 | XMS REPORT ---
Author Author Belgica Calix [facility] eClinicalWorks Address Unknown Phone Unavailable Care Team Providers Care Supervisor Hand Silvering Name Role Phone Belgica Calix Unavailable Allergies, Adverse Reactions, Alerts Substance Reaction Event Type N.K.D.A. Info Not Available Non Drug Allergy Encounters Encounter Location Date Referral to Orth[facility] Mar 16, 2014 FEVER [facility] Jul 13, 2014 BLADDER [facility] Aug 13, 2014 BLADDER [facility] October 03, 2014 sore throat [facility] Jul 26, 2013 possible allergic reaction that started last night [facility] May 01, 2015 Unknown [facility] Aug 14, 2013 fever 102 and sore throat [facility] December 19, 2013 STITCHES REMOVAL [facility] January 11, 2015 Labs [facility] October 09, 2014 EARACHE [facility] October 12, 2014 Problems Problem Type Condition ICD-9 Code Onset Dates Condition Status Assessment Food allergy Z91.018 Active Assessment Allergic rhinitis J30.9 Active Assessment Body mass index (BMI) of 20.0-20.9 in adult Z68.20 Active Social History Social History Element Qualifiers Date Reported Depression Screening: . 11/2013May 01, 2015 Flu Vaccine: . no May 01, 2015 Where or with whom do you live ? . mother May 01, 2015 hobbies/sports . dance May 01, 2015 children . none May 01, 2015 Tobacco Use: . Are you a: never smoker May 01, 2015 Marital Status: single. May 01, 2015 Do you drink alcohol? . Status: No May 01, 2015 Occupation: . student May 01, 2015 Family history Qualifier Description Comment Date Reported Maternal Grandmother Comment not available May 01, 2015 Paternal Grandmother Comment not available May 01, 2015 Siblings alive healthy May 01, 2015 Maternal Grandfather Comment not available May 01, 2015 Children Comment not available May 01, 2015 Father alive healthy May 01, 2015 Paternal Grandfather Comment not available May 01, 2015 Mother alive multiple sclerosis May 01, 2015 Other: Comment not available May 01, 2015 Vital Signs Date/Time: May 01, 2015 Weight 131 lbs Height 62 in Cardiac Monitoring Heart Rate 75 /min Blood Pressure Diastolic 70 mm Hg Blood Pressure Systolic 108 mm Hg Summary Purpose eClinicalWorks Submission
--- OUTSIDE RECORDS SUMMARY | 2018-08-29 16:05 | XMS REPORT ---
Author Author Genevieve Walker [facility] eClinicalWorks Address Unknown Phone Unavailable Care Team Providers Care Ironworker Apprentice Name Role Phone Genevieve Walker Unavailable Allergies, Adverse Reactions, Alerts Substance Reaction Event Type N.K.D.A. Info Not Available Non Drug Allergy Encounters Encounter Location Date Referral to Orth[facility] Mar 16, 2014 FEVER [facility] Jul 13, 2014 BLADDER [facility] Aug 13, 2014 BLADDER [facility] October 03, 2014 sore throat [facility] Jul 26, 2013 Unknown [facility] Aug 14, 2013 fever 102 and sore throat [facility] December 19, 2013 STITCHES REMOVAL [facility] January 11, 2015 Labs [facility] October 09, 2014 EARACHE [facility] October 12, 2014 Sick Visit [facility] Feb 28, 2016 Sore's inside lip/mouth [facility] Mar 25, 2016 Unknown [facility] November 07, 2015 Bladder problems [facility] December 09, 2015 Bladder [facility] September 18, 2015 Unknown [facility] September 20, 2015 possible allergic reaction that started last night [facility] May 01, 2015 Ear pain [facility] Aug 26, 2015 earache [facility] Jul 02, 2016 Problems Problem Type Condition ICD-9 Code Onset Dates Condition Status Assessment Seasonal allergic rhinitis, unspecified allergic rhinitis trigger J30.2 Active Problem Seasonal allergic rhinitis, unspecified allergic rhinitis trigger J30.2 Active Social History Social History Element Qualifiers Date Reported 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 Status , Is kittitian your primary language? Yes Jul 02, 2016 Flu Vaccine: . no , Refuse for 2015Jul 02, 2016 Where or with whom do you live ? . mother Jul 02, 2016 Depression Screening: . negative Jul 02, 2016 hobbies/sports . dance Jul 02, 2016 children . none Jul 02, 2016 Last Colonoscopy: . never Jul 02, 2016 Tobacco Use: . Are you a: never smoker Jul 02, 2016 Use of recreational / street drugs? . Answer: No Jul 02, 2016 Marital Status: single. Jul 02, 2016 Last Bone Density: . never Jul 02, 2016 Do you drink alcohol? . Status: No Jul 02, 2016 Family history Qualifier Description Comment Date Reported Maternal Grandmother Comment not available Jul 02, 2016 Paternal Grandmother Comment not available Jul 02, 2016 Siblings alive healthy Jul 02, 2016 Maternal Grandfather Comment not available Jul 02, 2016 Children Comment not available Jul 02, 2016 Father alive healthy Jul 02, 2016 Paternal Grandfather Comment not available Jul 02, 2016 Mother alive multiple sclerosis Jul 02, 2016 Other: Comment not available Jul 02, 2016 Vital Signs Date/Time: Jul 02, 2016 Weight 150 lbs Height 62 in Temperature 98.7 F Cardiac Monitoring Heart Rate 91 /min Blood Pressure Diastolic 70 mm Hg Blood Pressure Systolic 118 mm Hg Results DECADRON 1MGx4 Summary Purpose eClinicalWorks Submission
--- OUTSIDE RECORDS SUMMARY | 2018-08-29 16:05 | XMS REPORT ---
Author Author Belgica Calix [facility] [place] eClinicalWorks Address Unknown Phone Unavailable Care Team Providers Care Insurance Billing Clerk Name Role Phone Belgica Calix CP Unavailable Encounters Encounter Location Date Referral to Ortho [facility] Mar 16, 2014 FEVER [facility] Jul 13, 2014 BLADDER [facility] Aug 13, 2014 BLADDER [facility] October 03, 2014 sore throat [facility] Jul 26, 2013 Unknown [facility] Aug 14, 2013 fever 102 and sore throat [facility] December 19, 2013 STITCHES REMOVAL [facility] January 11, 2015 letter [facility] September 01, 2016 anxiety [facility] August 31, 2016 Labs [facility] October 09, 2014 EARACHE [facility] October 12, 2014 Sick Visit [facility] Feb 28, 2016 Sore's inside lip/mouth [facility] Mar 25, 2016 Unknown [facility] November 07, 2015 Bladder problems [facility] December 09, 2015 Bladder [facility] September 18, 2015 Unknown [facility] September 20, 2015 possible allergic reaction that started last night [facility] May 01, 2015 Ear pain [facility] Aug 26, 2015 earache [facility] Jul 02, 2016 Problems Problem Type Condition ICD-9 Code Onset Dates Condition Status Problem Depression, unspecified depression type F32.9 Active Problem Seasonal allergic rhinitis, unspecified allergic rhinitis trigger J30.2 Active Problem Anxiety disorder, unspecified F41.9 Active Social History Social History Element Qualifiers Date Reported 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 none August 31, 2016 Where or with whom do you live ? . mother August 31, 2016 Tobacco Use: . Are you a: never smoker August 31, 2016 Ethnicity . Status , Is kiswahili your primary language? Yes August 31, 2016 [...] Flu Vaccine: . no , Refuse for 2015August 31, 2016 Do you drink alcohol? . Status: No August 31, 2016 Summary Purpose eClinicalWorks Submission
--- OUTSIDE RECORDS SUMMARY | 2018-08-29 16:05 | XMS REPORT ---
Author Author Belgica Calix [facility] eClinicalWorks Address Unknown Phone Unavailable Care Team Providers Care Loss Prevention Auditor Name Role Phone Belgica Calix Unavailable Allergies, Adverse Reactions, Alerts Substance Reaction Event Type N.K.D.A. Info Not Available Non Drug Allergy Encounters Encounter Location Date Referral to Ortho [facility] Mar 16, 2014 FEVER [facility] Jul 13, 2014 BLADDER [facility] Aug 13, 2014 BLADDER [facility] October 03, 2014 sore throat [facility] Jul 26, 2013 Unknown [facility] Aug 14, 2013 fever 102 and sore throat [facility] December 19, 2013 STITCHES REMOVAL [facility] January 11, 2015 Labs [facility] October 09, 2014 EARACHE [facility] October 12, 2014 Unknown [facility] November 07, 2015 Bladder problems [facility] December 09, 2015 Bladder [facility] September 18, 2015 Unknown [facility] September 20, 2015 possible allergic reaction that started last night [facility] May 01, 2015 Ear pain [facility] Aug 26, 2015 Problems Problem Type Condition ICD-9 Code Onset Dates Condition Status Assessment Urinary tract infection N39.0 Active Assessment Frequent urination R35.0 Active Medications Medication Code System Code Instructions Start Date End Date Status Dosage [facility] [address]14 6.5 % Otic Active Unknown Bactrim DS [facility] [address]-02 800-160 MG Orally twice a day December 09, 2015 December 14, 2015 Active 1 tablet Advil [facility] [address]-46 200 MG Orally prn Active 1 tablet as needed Enskyce [facility] [address]-28 0.15-30 MG-MCG Orally Once a day September 18, 2015 Active 1 tablet Diflucan [facility] [address]-74 200 MG Orally once December 09, 2015 December 10, 2015 Active 1 tablet Social History Social History Element Qualifiers Date Reported Depression Screening: . negative December 09, 2015 Last Colonoscopy: . never December 09, 2015 Last Bone Density: . never December 09, 2015 Ethnicity . Status , Is indonesian your primary language? Yes December 09, 2015 Where or with whom do you live ? . mother December 09, 2015 Flu Vaccine: . no December 09, 2015 hobbies/sports . dance December 09, 2015 children . none December 09, 2015 Tobacco Use: . Are you a: never smoker December 09, 2015 Marital Status: single. December 09, 2015 Do you drink alcohol? . Status: No December 09, 2015 Occupation: . Unemployed December 09, 2015 Family history Qualifier Description Comment Date Reported Maternal Grandmother Comment not available December 09, 2015 Paternal Grandmother Comment not available December 09, 2015 Siblings alive healthy December 09, 2015 Maternal Grandfather Comment not available December 09, 2015 Children Comment not available December 09, 2015 Father alive healthy December 09, 2015 Paternal Grandfather Comment not available December 09, 2015 Mother alive multiple sclerosis December 09, 2015 Other: Comment not available December 09, 2015 Vital Signs Date/Time: December 09, 2015 Weight 141 lbs Height 62 in Temperature 98.2 F Cardiac Monitoring Heart Rate 71 /min Blood Pressure Diastolic 72 mm Hg Blood Pressure Systolic 118 mm Hg Results URINE AUTO W/O SCOPE Summary Purpose eClinicalWorks Submission
[2018-08-29 16:50] LABS: BILIRUBIN,URINE NEGATIVE (NEGATIVE); CLARITY,URINE SL CLOUDY (CLEAR); COLOR,URINE YELLOW (YELLOW); KETONES,URINE NEGATIVE (NEGATIVE); LEUKOCYTE ESTERASE ,URINE NEGATIVE (NEGATIVE); NITRITE,URINE NEGATIVE (NEGATIVE); PROTEIN,URINE DIPSTICK NEGATIVE (NEGATIVE); URINE UROBILINOGEN 0.2 mg/dL (0.2 - 1)
[2018-08-29 16:56] LABS: BACTERIA,URINE FEW /HPF
[2018-08-29] MEDS ORDERED: SODIUM CHLORIDE 0.9% 1000ML 1,000 ML IV SCH (17:30)
--- NOTE | 2018-08-29 18:30 | NUR ---
RECEIVED PT FROM CT INTO ER 1
[2018-08-29] MEDS ORDERED: SERTRALINE HCL50 MG PO (18:56)
[2018-08-29 19:25] LABS: BASOPHILS % 0.3 % (0.0-1.0); EOSINOPHILS # (AUTO) 0.2 (0.0-0.4); EOSINOPHILS % 1.4 % (0.0-6.0); HEMATOCRIT 43.5 % (34.2-44.1); HEMOGLOBIN 14.4 g/dL (12.0-16.0); LYMPHOCYTES # (AUTO) 3.4 (1.0-3.2); LYMPHOCYTES % 23.6 % (18.0-39.1); MEAN CORPUSCULAR HEMOGLOBIN 27.9 pg (28-32); MEAN CORPUSCULAR HGB CONC 33.1 g/dL (31-35); MEAN CORPUSCULAR VOLUME 84.3 fL (81-99); MONOCYTES % 7.1 % (4.4-11.3); NEUTROPHILS # (AUTO) 9.7 (2.1-6.9); NEUTROPHILS % 67.1 % (38.7-80.0); PLATELET COUNT 271 x10e3/uL (140-360); RED BLOOD COUNT 5.16 x10e6/uL (3.6-5.1); RED CELL DISTRIBUTION WIDTH 13.1 % (11.7-14.4)
[2018-08-29] MEDS ORDERED: KETOROLAC TROMETHAMINE 30 MG/ML VIAL IV ONE (19:30)
[2018-08-29 19:39] LABS: ALANINE AMINOTRANSFERASE 13 IU/L (0-55); ALBUMIN 3.9 g/dL (3.5-5.0); ALKALINE PHOSPHATASE 65 IU/L (40-150); ANION GAP 14.6 mmol/L (8-16); BLOOD UREA NITROGEN 11 mg/dL (7-26); BUN/CREATININE RATIO 15 (6-25); CALCIUM 9.5 mg/dL (8.4-10.2); CARBON DIOXIDE 20 mmol/L (22-29); CHLORIDE 106 mmol/L (98-107); CREATININE, SERUM 0.72 mg/dL (0.57-1.11); EST GLOMERULAR FILTRATION RATE > 60 ML/MIN (60-); GLUCOSE 87 mg/dL (74-118); POTASSIUM 3.6 mmol/L (3.5-5.1); SODIUM 137 mmol/L (136-145)
[2018-08-29 19:50] LABS: AMYLASE 77 U/L (25-125); LIPASE 29 U/L (8-78)
--- NOTE | 2018-08-29 20:11 | Diagnostic Imaging Report ---
EXAM: CT ABDOMEN/PELVIS WO DATE: 08/29/2018 5:23 PM INDICATION: 23-year-old female with Left kidney/flank pain for 2 days COMPARISON: None TECHNIQUE: The abdomen and pelvis were scanned using a multidetector helical scanner. Coronal and sagittal reformations were obtained. CT low dose techniques were utilized, as applicable. IV Contrast: 0 ml Isovue 300/370 FINDINGS: Lack of IV contrast decreases sensitivity in evaluating abdominal and pelvic organs. LOWER THORAX: No consolidations LIVER/BILIARY: No masses. No ductal dilatation. GALLBLADDER: Unremarkable SPLEEN: Unremarkable PANCREAS: Unremarkable ADRENALS: No nodules KIDNEYS: Multiple bilateral renal calculi including at least 3 on the left measuring up to 4.5 mm in the left lower pole. There is a left UPJ calculus measuring 3.7 mm with mild dilatation of the left renal collecting system. There is no perinephric fluid collection or evidence of ureteral rupture. There are at least 3 renal calculi on the right, the largest measures 3.6 mm in the lower pole GI TRACT: No wall thickening or evidence of obstruction. VESSELS: Unremarkable PERITONEUM/RETROPERITONEUM: No free air or fluid LYMPH NODES: No lymphadenopathy REPRODUCTIVE ORGANS/BLADDER: Unremarkable SOFT TISSUES: Unremarkable BONES: No suspicious bone lesions. IMPRESSION: There is a 3.7 mm at least partially obstructing left UPJ calculus with mild left-sided hydronephrosis. No perinephric stranding or fluid collection is noted. Multiple bilateral renal calculi, as described above Signed by: Hans Ball MD on 08/29/2018 8:07 PM
[2018-08-29 21:49] VITALS: BP 133/80
== END 2018-08-29 22:02 | disposition home or self-care (01) ==
LOC: ER 16:00
DX: R10.32 Left lower quadrant pain (principal); N20.1 Calculus of ureter; F41.9 Anxiety disorder, unspecified
CPT/HCPCS: 36415; 74176; 80053; 81001; 81025; 82150; 83690; 85025; 96374; 99283; J1885; J7030

== ENCOUNTER 2019-02-02 07:56 | Emergency (ER) | payer SELFPAY ==
[~2019-02-02] VITALS: Ht 152.4 cm; Wt 63.5 kg
[~2019-02-02 07:56] MED LIST: SERTRALINE HCL50 MG PO
--- OUTSIDE RECORDS SUMMARY | 2019-02-02 08:01 | XMS REPORT ---
Author Author Genevieve Walker Organization eClinicalWorks Address Unknown Phone Unavailable Care Team Providers Care Bulk Sealer Name Role Phone Genevieve Walker CP Unavailable Allergies No Known Allergies Problems Problem Type Condition Code Onset Dates Condition Status Problem Goiter E04.9 Active Problem Anxiety disorder, unspecified F41.9 Active Problem Hyperthyroidism E05.90 Active Assessment Anxiety disorder, unspecified F41.9 Active Problem Depression, unspecified depression type F32.9 Active Problem Seasonal allergic rhinitis, unspecified allergic rhinitis trigger J30.2 Active Medications Medication Code System Code Instructions Start Date End Date Status Dosage Sertraline HCl [facility] [place]NOTE 2] [id number] 100 MG by mouth Once a day October 04, 2017 November 02, 2018 Active 1 tablet Results No Known Results Summary Purpose eClinicalWorks Submission
--- OUTSIDE RECORDS SUMMARY | 2019-02-02 08:01 | XMS REPORT | Continuity of Care Document ---
Author Author [employer] Address Unknown Phone Unavailable Care Team Providers Care Telephone Worker Name Role Phone [employer] Unavailable Unavailable Problems Problem Status Onset Date Classification Date Reported Comments Source Allergy, unspecified, initial encounter 05/10/2018 11/21/2018 [facility] Allergic reaction 05/03/2018 11/21/2018 [facility] Eye swelling 05/03/2018 11/21/2018 [facility] EYE PAIN OR INJURY Active 05/03/2018 [facility] Influenza due to other identified influenza virus with other respiratory manifestations 07/29/2017 10/30/2017 [facility] Influenza A 07/24/2017 10/30/2017 [facility] FLU LIKE SYMPTOMS Active 07/24/2017 [facility] Discharge Diagnosis: Viral URI with cough 06/21/2017 06/24/2017 [facility] COLD Active 06/21/2017 [facility] Discharge Diagnosis: Laceration 01/02/2015 01/05/2015 [facility] LEFT HAND LACERATION Active 01/02/2015 [facility] Depression, unspecified depression type Active Problem 10/04/2018 [facility] Seasonal allergic rhinitis, unspecified allergic rhinitis trigger Active Problem 10/04/2018 [facility] Anxiety disorder, unspecified Active Problem 10/04/2018 [facility] Current mild episode of major depressive disorder without prior episode Active Diagnosis 12/21/2017 [facility] Goiter Active Problem 10/04/2018 [facility] Hyperthyroidism Active Problem 10/04/2018 [facility] Acute URI Active Diagnosis 03/27/2017 [facility] Sore throat Active Diagnosis 03/27/2017 [facility] Chest pressure Active Diagnosis 10/08/2017 [facility] Routine general medical examination at a health care facility Active Diagnosis 10/08/2017 [facility] Contraceptive [...] 04/19/2018 [facility] Acute tonsillitis Active Diagnosis 07/29/2013 [facility] Strep pharyngitis Active Diagnosis 07/29/2013 [facility] Impacted ear wax Active Diagnosis 08/28/2015 [facility] Left ear pain Active Diagnosis 08/28/2015 [facility] Sore [...] 07/14/2014 [facility] Food allergy Active Diagnosis 05/03/2015 [facility] Allergic rhinitis Active Diagnosis 05/03/2015 [facility] Body mass index of 20.0-20.9 in adult Active Diagnosis 05/03/2015 [facility] Upper respiratory infection Active Diagnosis 03/05/2016 [facility] Canker sores oral Active Diagnosis 03/27/2016 [facility] Urinary [...] 09/20/2015 [facility] Other specified disorders of eye and adnexa 11/21/2018 [facility] Localized swelling, mass and lump, head 11/21/2018 [facility] Medications Medication Details Route Status Patient Instructions Ordering Provider Order Date Source Amoxicillin 1 tablet Orally Active 500 MG Orally every 12 hrs Aaron 08/03/2018 [facility] Estrostep Fe 1 tablet Orally Active 1-20/1-30/1-35 MG-MCG Orally Once a day Aaron 07/25/2018 [facility] NuvaRing 1 ring Vaginal Active 0.12-0.015 MG/24HR Vaginal for 3 weeks Zeke 07/23/2018 [facility] Famotidine 40 MG Oral Tablet [Pepcid] 20 mg, 1 tab, Route: PO, Drug form: TAB, ONCE, Dosing Weight 65.909, kg, Start date: 05/03/18 22:37:00 COPY HOLDER, Stop date: 05/03/18 22:37:00 CSTNotes: (Same as: Pepcid) Inactive 05/04/2018 [facility] Dexamethasone 10 mg, 2.5 mL, Route: IM, Drug form: INJ, ONCE, Dosing Weight 65.909, kg, Priority: STAT, Start date: 05/03/18 22:37:00 COPY HOLDER, Stop date: 05/03/18 22:37:00 COPY HOLDER Inactive 05/04/2018 [facility] Benadryl 25 mg, 1 tab, Route: PO, Drug form: TAB, ONCE, Dosing Weight 65.909, kg, Priority: STAT, Start date: 05/03/18 22:37:00 COPY HOLDER, Stop date: 05/03/18 22:37:00 COPY HOLDER Inactive 05/04/2018 [facility] Augmentin 1 tablet Orally Active 875-125 MG Orally every 12 hrs [place] 04/11/2018 [facility] Medrol as directed & to be started thurs am as discussed in clinic Orally Active 4 mg Orally as directed [place] 04/11/2018 [facility] Sertraline HCl 1 tablet Orally Active 50 mg Orally Once a day [place] 10/19/2017 [facility] Sertraline HCl 1 tablet by mouth Active 100 MG by mouth Once a day [place] 10/04/2017 [facility] Sertraline HCl 1 tablet Orally Active 50 mg Orally Once a day [place] 10/04/2017 [facility] Acetaminophen 325 MG Oral Tablet [Tylenol] 650 mg=2 tab, PO, Q6H, PRN Fever, X 5 day, # 24 tab, 0 Refill(s) No Longer Active 07/24/2017 [facility] Tylenol 650 mg, Route: PO, Drug form: TAB, ONCE, Dosing Weight 65.909, kg, Priority: STAT, Start date: 07/24/17 11:04:00 COPY HOLDER, Stop date: 07/24/17 11:04:00 COPY HOLDER Inactive 07/24/2017 [facility] benzonatate 200 MG Oral Capsule [Tessalon] 200 mg=1 cap, PO, TID, X 7 day, # 21 cap, 0 Refill(s) Active 06/21/2017 [facility] Amoxicillin 1 capsule Orally Active 500 MG Orally twice a day [place] 03/25/2017 [facility] Lexapro 1 tablet Orally Active 10 MG Orally Once a day [place] 08/31/2016 [facility] Lexapro 1 tablet Orally Active 10 MG Orally Once a day [place] 08/31/2016 [facility] magic mouthwash 1 tsp (gargle and spit) PO Active 1:1:1 PO Q6 PRN [place] 03/25/2016 [facility] Zithromax 2 tablets on the first day, then 1 tablet daily for 4 days Orally Active 250 MG Orally Once a day [place] 02/28/2016 [facility] Bactrim DS 1 tablet Orally Active 800-160 MG Orally twice a day [place] 12/09/2015 [facility] Diflucan 1 tablet Orally Active 200 MG Orally once [place] 12/09/2015 [facility] Diflucan 1 tablet Orally Active 200 MG Orally Once a day [place] 09/20/2015 [facility] Enskyce 1 tablet Orally Active 0.15-30 MG-MCG Orally Once a day [place] 09/18/2015 [facility] Macrobid 1 capsule with food Orally Active 100 mg Orally twice a day [place] 09/18/2015 [facility] Augmentin 1 tablet Orally Active 500-125 MG Orally Twice a day [place]o 12/19/2013 [facility] Augmentin 1 tablet Orally Active 500-125 MG Orally Twice a day Lance 07/26/2013 [facility] Bromfed DM 10 ml as needed Orally Active 30-2-10 MG/5ML Orally every 6 hrs Lance 07/26/2013 [facility] Kristan Allergy 1 tablet as needed Orally Active 180 MG Orally Once a day PRN Ron [facility] Zyrtec Allergy 1 tablet Orally Active 10 mg Orally Once a day PRN Aaron [facility] Zyrtec Allergy 1 tablet Orally Active 10 mg Orally Once a day PRN Ron [facility] Kritsan Allergy 1 tablet as needed Orally Active 180 MG Orally Once a day PRN Ron [facility] Sinus Congestion/Pain Day/Nght as directed Orally Active 2-5-325 & 5-325 MG Orally Deo [facility] Ear Wax Drops Unknown Otic Active 6.5 % Otic [place] [facility] Advil 1 tablet as needed Orally Active 200 MG Orally prn [place] [facility] Sertraline Hcl 50 Mg Tablet Daily Active [facility] Allergies, Adverse Reactions, Alerts Substance Category Reaction Severity Reaction type Status Date Reported Comments Source N.K.D.A. Adverse Reaction Info Not Available Adverse Reaction Active 08/13/2018 [facility] No Known Medication Allergies Assertion Drug allergy [place] Immunizations No Data Provided for This Section Results Order Name Results Value Reference Range Date Interpretation Comments Source Blood leukocytes automated count (number/volume) 14.39 4.8 - 10.8 08/29/2018 [facility] Blood erythrocytes automated count (number/volume) 5.16 3.6 - 5.1 08/29/2018 [facility] Blood hemoglobin measurement (moles/volume) 14.4 12.0 - 16.0 08/29/2018 [facility] Automated blood hematocrit (volume fraction) 43.5 34.2 - 44.1 08/29/2018 [facility] Automated erythrocyte mean corpuscular volume 84.3 81 - 99 08/29/2018 [facility] Automated erythrocyte mean corpuscular hemoglobin (mass per erythrocyte) 27.9 28 - 32 08/29/2018 [facility] Automated erythrocyte mean corpuscular hemoglobin concentration measurement (mass/volume) 33.1 31 - 35 08/29/2018 [facility] RDW BldCo-Rto 13.1 11.7 - 14.4 08/29/2018 [facility] Automated blood platelet count (count/volume) 271 140 - 360 08/29/2018 [facility] Automated blood segmented neutrophil count as percentage of total leukocytes 67.1 38.7 - 80.0 08/29/2018 [facility] Automated blood lymphocyte count as percentage ot total leukocytes 23.6 18.0 - 39.1 08/29/2018 [facility] Automated blood monocyte count as percentage of total leukocytes 7.1 4.4 - 11.3 08/29/2018 [facility] Automated blood eosinophil count as percentage of total leukocytes 1.4 0.0 - 6.0 08/29/2018 [facility] Automated blood basophil count as percentage of total leukocytes 0.3 0.0 - 1.0 08/29/2018 [facility] IM GRANULOCYTES % 0.5 0.0 - 1.0 08/29/2018 [facility] Automated blood neutrophil count 9.7 2.1 - 6.9 08/29/2018 [facility] Blood lymphocytes count (number/volume) 3.4 1.0 - 3.2 08/29/2018 [facility] Blood monocytes automated count (number/volume) 1.0 0.2 - 0.8 08/29/2018 [facility] Automated blood eosinophil count 0.2 0.0 - 0.4 08/29/2018 [facility] Automated blood basophil count (count/volume) 0.0 0.0 - 0.1 08/29/2018 [facility] Absolute Immature Granulocyte (auto 0.07 0 - 0.1 08/29/2018 [facility] Serum or plasma sodium measurement (moles/volume) 137 136 - 145 08/29/2018 [facility] Serum or plasma potassium measurement (moles/volume) 3.6 3.5 - 5.1 08/29/2018 [facility] Serum or plasma chloride measurement (moles/volume) 106 98 - 107 08/29/2018 [facility] Serum or plasma carbon dioxide, total measurement (moles/volume) 20 22 - 29 08/29/2018 [facility] Serum or plasma anion gap 14.6 8 - 16 08/29/2018 [facility] Serum or plasma urea nitrogen measurement (mass/volume) 11 7 - 26 08/29/2018 [facility] Serum or plasma creatinine measurement (mass/volume) 0.72 0.57 - 1.11 08/29/2018 [facility] Serum or plasma urea nitrogen/creatinine mass ratio 15 6 - 25 08/29/2018 [facility] Estimated glomerular filtration rate (GFR) determination > 60 60 08/29/2018 [facility] Glucose measurement 87 74 - 118 08/29/2018 [facility] Serum or plasma calcium measurement (mass/volume) 9.5 8.4 - 10.2 08/29/2018 [facility] Serum or plasma total bilirubin measurement (mass/volume) 0.3 0.2 - 1.2 08/29/2018 [facility] Aspartate Amino Transf (AST/SGOT) 16 5 - 34 08/29/2018 [facility] Serum or plasma alanine aminotransferase measurement (enzymatic activity/volume) 13 0 - 55 08/29/2018 [facility] Serum or plasma protein measurement (mass/volume) 7.7 6.5 - 8.1 08/29/2018 [facility] Serum or plasma albumin measurement (mass/volume) 3.9 3.5 - 5.0 08/29/2018 [facility] Plasma globulin measurement (mass/volume) 3.8 2.3 - 3.5 08/29/2018 [facility] Serum or plasma albumin/globulin mass ratio 1.0 0.8 - 2.0 08/29/2018 [facility] Serum or plasma alkaline phosphatase measurement (enzymatic activity/volume) 65 40 - 150 08/29/2018 [facility] Serum or plasma amylase measurement (enzymatic activity/volume) 77 25 - 125 08/29/2018 [facility] Serum or plasma lipase measurement (enzymatic activity/volume) 29 8 - 78 08/29/2018 [facility] Urine color determination YELLOW YELLOW 08/29/2018 [facility] Urine clarity SL CLOUDY CLEAR 08/29/2018 [facility] Specific gravity of Urine by Test strip 1.010 1.010 - 1.025 08/29/2018 [facility] Urine pH measurement by automated test strip 6 5 - 7 08/29/2018 [facility] Urine leukocyte esterase detection by dipstick NEGATIVE NEGATIVE 08/29/2018 [facility] Urine nitrite detection NEGATIVE NEGATIVE 08/29/2018 [facility] Urine protein measurement by test strip (mass/volume) NEGATIVE NEGATIVE 08/29/2018 [facility] Urine glucose detection NEGATIVE NEGATIVE 08/29/2018 [facility] Urine ketones detection by automated test strip NEGATIVE NEGATIVE 08/29/2018 [facility] Urine urobilinogen measurement by test strip (mass/volume) 0.2 0.2 - 1 08/29/2018 [facility] Urine total bilirubin measurement (mass/volume) NEGATIVE NEGATIVE 08/29/2018 [facility] Urine erythrocytes detection 2+ NEGATIVE 08/29/2018 [facility] Automated urine sediment leukocyte count by microscopy (number/high power field) NONE 0 - 5 08/29/2018 [facility] Erythrocytes detection in urine sediment by light microscopy 6-10 0 - 5 08/29/2018 [facility] Bacteria detection in urine sediment by light microscopy FEW NONE 08/29/2018 [facility] Epithelial cells detection in urine sediment by light microscopy NONE NONE 08/29/2018 [facility] Urine human chorionic gonadotropin (hCG) detection NEGATIVE NEGATIVE 08/29/2018 [facility] RAPID Grp A Strep Scr Negative (07/24/17 11:11 AM) Negative 07/24/2017 [facility] VIRAL - SEROLOGY Influ B Negative (07/24/17 11:11 AM) Negative 07/24/2017 [facility] VIRAL - SEROLOGY Influ A Positive 1 *ABN* (07/24/17 11:11 AM) Negative 07/24/2017 Result Comment: "Significant Findings called to Michelle Schuler at 07/24/2017 11:38 by HT. Read Back OK." [facility] RAPID Grp A Strep Scr Negative (06/21/17 1:57 AM) Negative 06/21/2017 [facility] Pathology Reports No Data Provided for This Section Diagnostic Reports Report Value Date Source Chest 2 views DX Study: Chest 2 views DX Clinical Indication: - cough Comparison: Chest x-ray from 06/21/2017 FINDINGS: The cardiac silhouette is normal in size. The lungs are clear and without consolidation or congestion. No pleural effusion or pneumothorax is seen. The osseous structures are unremarkable. IMPRESSION: No acute cardiopulmonary disease. SL: [id number] 07/24/2017 [facility] Chest 2 views DX XR CHEST 2 VIEWS HISTORY: - cough COMPARISON: None. FINDINGS: The lungs are clear. The heart and vascular markings are normal. No pleural abnormality. The bones are intact. IMPRESSION: No active process. SL: DIYA 06/21/2017 [facility] Consultation Notes No Data Provided for This Section Discharge Summaries No Data Provided for This Section History and Physicals No Data Provided for This Section Vital Signs Vital Sign Value Date Comments [...] [facility] Systolic (mm Hg) 98 07/23/2018 [facility] Systolic (mm Hg) 124 05/04/2018 [facility] Diastolic (mm Hg) 52 05/04/2018 [facility] Respitory Rate 16 05/04/2018 [facility] Heart Rate 66 05/04/2018 [facility] Temperature Oral (F) 97.9 F 05/04/2018 [facility] Temperature Oral (F) 98.1 F 05/04/2018 [facility] Heart Rate 71 05/04/2018 [facility] Respitory Rate 18 05/04/2018 [facility] Systolic (mm Hg) 133 05/04/2018 [facility] Diastolic (mm Hg) 89 05/04/2018 [facility] Weight 64.545 05/04/2018 [facility] BMI Calculated 27.79 05/04/2018 [facility] Height 152.4 cm 05/04/2018 [facility] Weight 149 04/11/2018 [facility] Temperature Oral (F) 98.4 F 07/24/2017 [facility] Heart Rate 88 07/24/2017 [facility] Respitory Rate 20 07/24/2017 [facility] Systolic (mm Hg) 118 07/24/2017 [facility] Diastolic (mm Hg) 78 07/24/2017 [facility] Height 152.4 cm 07/24/2017 [facility] Temperature Oral (F) 101.1 F 07/24/2017 [facility] BMI Calculated 28.38 07/24/2017 [facility] Weight 65.909 07/24/2017 [facility] Heart Rate 124 07/24/2017 [facility] Respitory Rate 20 07/24/2017 [facility] Systolic (mm Hg) 126 07/24/2017 [facility] Diastolic (mm Hg) 76 07/24/2017 [facility] Heart Rate 86 06/21/2017 [facility] Respitory Rate 18 06/21/2017 [facility] Systolic (mm Hg) 106 06/21/2017 [facility] Diastolic (mm Hg) 71 06/21/2017 [facility] Height 152.4 cm 06/21/2017 [facility] BMI Calculated 27.4 06/21/2017 [facility] Weight 63.636 06/21/2017 [facility] Temperature Oral (F) 98.4 F 06/21/2017 [facility] Respitory Rate 18 06/21/2017 [facility] Heart Rate 93 06/21/2017 [facility] Systolic (mm Hg) 127 06/21/2017 [facility] Diastolic (mm Hg) 83 06/21/2017 [facility] Weight 153 03/25/2017 [facility] Respitory Rate 14 01/03/2015 [facility] Systolic (mm Hg) 120 01/03/2015 [facility] Diastolic (mm Hg) 70 01/03/2015 [facility] Temperature Oral (F) 98.4 F 01/03/2015 [facility] Heart Rate 85 01/03/2015 [facility] Height 152.4 cm 01/03/2015 [facility] BMI Calculated 23.48 01/03/2015 [facility] Weight 54.545 01/03/2015 [facility] Systolic (mm Hg) 129 01/03/2015 [facility] Diastolic (mm Hg) 83 01/03/2015 [facility] Heart Rate 89 01/03/2015 [facility] Respitory Rate 20 01/03/2015 [facility] Temperature Oral (F) 98.3 F 01/03/2015 [facility] Weight 129 07/13/2014 [facility] Height 61 07/13/2014 [facility] Temperature Oral (F) 99.0 F 07/13/2014 [facility] Weight 124 12/19/2013 [facility] Height 60 12/19/2013 [facility] Temperature Oral (F) 99.1 F 12/19/2013 [facility] Heart Rate 96 12/19/2013 [facility] Diastolic (mm Hg) 78 12/19/2013 [facility] Systolic (mm Hg) 100 12/19/2013 [facility] Weight 125 07/26/2013 [facility] Height 60 07/26/2013 [facility] Temperature Oral (F) 98.8 F 07/26/2013 [facility] Heart Rate 88 07/26/2013 [facility] Diastolic (mm Hg) 72 07/26/2013 [facility] Systolic (mm Hg) 104 07/26/2013 [facility] Encounters Location Location Details Encounter Type Encounter Number Reason For Visit Attending Provider ADM Date DC Date Status Source [facility] sore throat [id number] 07/26/2013 07/26/2013 [facility] sore throat [id number] 07/26/2013 07/26/2013 [facility] sore throat [id number] 07/26/2013 07/26/2013 [facility] sore throat [id number] 07/26/2013 07/26/2013 [facility] sore throat [id number] 07/26/2013 07/26/2013 [facility] sore throat [id number] 07/26/2013 07/26/2013 [facility] sore throat [id number] 07/26/2013 07/26/2013 [facility] sore throat [id number] 07/26/2013 07/26/2013 [facility] sore throat [id number] 07/26/2013 07/26/2013 [facility] sore throat [id number] 07/26/2013 07/26/2013 [facility] sore throat [id number] 07/26/2013 07/26/2013 [facility] sore throat [id number] 07/26/2013 07/26/2013 [facility] sore throat [id number] 07/26/2013 07/26/2013 [facility] sore throat [id number] 07/26/2013 07/26/2013 [facility] sore throat [id number] 07/26/2013 07/26/2013 [facility] sore throat [id number] 07/26/2013 07/26/2013 [facility] Unknown [id number] 08/14/2013 08/14/2013 [facility] Unknown [id number] 08/14/2013 08/14/2013 [facility] Unknown [id number] 08/14/2013 08/14/2013 [facility] Unknown [id number] 08/14/2013 08/14/2013 [facility] Unknown [id number] 08/14/2013 08/14/2013 [facility] Unknown [id number] 08/14/2013 08/14/2013 [facility] Unknown [id number] 08/14/2013 08/14/2013 [facility] Unknown [id number] 08/14/2013 08/14/2013 [facility] Unknown [id number] 08/14/2013 08/14/2013 [facility] Unknown [id number] 08/14/2013 08/14/2013 [facility] Unknown [id number] 08/14/2013 08/14/2013 [facility] Unknown [id number] 08/14/2013 08/14/2013 [facility] Unknown [id number] 08/14/2013 08/14/2013 [facility] Unknown [id number] 08/14/2013 08/14/2013 [facility] Unknown [id number] 08/14/2013 08/14/2013 [facility] fever 102 and sore throat [id number] 12/19/2013 12/19/2013 [facility] fever 102 and sore throat [id number] 12/19/2013 12/19/2013 [facility] fever 102 and sore throat [id number] 12/19/2013 12/19/2013 [facility] fever 102 and sore throat [id number] 12/19/2013 12/19/2013 [facility] fever 102 and sore throat [id number] 12/19/2013 12/19/2013 [facility] fever 102 and sore throat [id number] 12/19/2013 12/19/2013 [facility] fever 102 and sore throat [id number] 12/19/2013 12/19/2013 [facility] fever 102 and sore throat [id number] 12/19/2013 12/19/2013 [facility] fever 102 and sore throat [id number] 12/19/2013 12/19/2013 [facility] fever 102 and sore throat [id number] 12/19/2013 12/19/2013 [facility] fever 102 and sore throat [id number] 12/19/2013 12/19/2013 [facility] fever 102 and sore throat [id number] 12/19/2013 12/19/2013 [facility] fever 102 and sore throat [id number] 12/19/2013 12/19/2013 [facility] fever 102 and sore throat [id number] 12/19/2013 12/19/2013 [facility] Referral to Ortho [id number] 03/16/2014 03/16/2014 [facility] Referral to Ortho [id number] 03/16/2014 03/16/2014 [facility] Referral to Ortho [id number] 03/16/2014 03/16/2014 [facility] Referral to Ortho [id number] 03/16/2014 03/16/2014 [facility] Referral to Ortho [id number] 03/16/2014 03/16/2014 [facility] Referral to Ortho [id number] 03/16/2014 03/16/2014 [facility] Referral to Ortho [id number] 03/16/2014 03/16/2014 [facility] Referral to Ortho [id number] 03/16/2014 03/16/2014 [facility] Referral to Ortho [id number] 03/16/2014 03/16/2014 [facility] Referral to Ortho [id number] 03/16/2014 03/16/2014 [facility] Referral to Ortho [id number] 03/16/2014 03/16/2014 [facility] Referral to Ortho [id number] 03/16/2014 03/16/2014 [facility] Referral to Ortho [id number] 03/16/2014 03/16/2014 [facility] FEVER [id number] 07/13/2014 07/13/2014 [facility] FEVER [id number] 07/13/2014 07/13/2014 [facility] FEVER [id number] 07/13/2014 07/13/2014 [facility] FEVER [id number] 07/13/2014 07/13/2014 [facility] FEVER [id number] 07/13/2014 07/13/2014 [facility] FEVER [id number] 07/13/2014 07/13/2014 [facility] FEVER [id number] 07/13/2014 07/13/2014 [facility] FEVER [id number] 07/13/2014 07/13/2014 [facility] FEVER [id number] 07/13/2014 07/13/2014 [facility] FEVER [id number] 07/13/2014 07/13/2014 [facility] FEVER [id number] 07/13/2014 07/13/2014 [facility] FEVER [id number] 07/13/2014 07/13/2014 [facility] BLADDER [id number] 08/13/2014 08/13/2014 [facility] BLADDER [id number] 08/13/2014 08/13/2014 [facility] BLADDER [id number] 08/13/2014 08/13/2014 [facility] BLADDER [id number] 08/13/2014 08/13/2014 [facility] BLADDER [id number] 08/13/2014 08/13/2014 [facility] BLADDER [id number] 08/13/2014 08/13/2014 [facility] BLADDER [id number] 08/13/2014 08/13/2014 [facility] BLADDER [id number] 08/13/2014 08/13/2014 [facility] BLADDER [id number] 08/13/2014 08/13/2014 [facility] BLADDER [id number] 08/13/2014 08/13/2014 [facility] BLADDER [id number] 08/13/2014 08/13/2014 [facility] BLADDER [id number] 10/03/2014 10/03/2014 [facility] BLADDER [id number] 10/03/2014 10/03/2014 [facility] BLADDER [id number] 10/03/2014 10/03/2014 [facility] BLADDER [id number] 10/03/2014 10/03/2014 [facility] BLADDER [id number] 10/03/2014 10/03/2014 [facility] BLADDER [id number] 10/03/2014 10/03/2014 [facility] BLADDER [id number] 10/03/2014 10/03/2014 [facility] BLADDER [id number] 10/03/2014 10/03/2014 [facility] BLADDER [id number] 10/03/2014 10/03/2014 [facility] BLADDER [id number] 10/03/2014 10/03/2014 [facility] BLADDER [id number] 10/03/2014 10/03/2014 [facility] Labs [id number] 10/09/2014 10/09/2014 [facility] Labs [id number] 10/09/2014 10/09/2014 [facility] Labs [id number] 10/09/2014 10/09/2014 [facility] Labs [id number] 10/09/2014 10/09/2014 [facility] Labs [id number] 10/09/2014 10/09/2014 [facility] Labs [id number] 10/09/2014 10/09/2014 [facility] Labs [id number] 10/09/2014 10/09/2014 [facility] Labs [id number] 10/09/2014 10/09/2014 [facility] Labs [id number] 10/09/2014 10/09/2014 [facility] Labs [id number] 10/09/2014 10/09/2014 [facility] Labs [id number] 10/09/2014 10/09/2014 [facility] EARACHE [id number] 10/12/2014 10/12/2014 [facility] EARACHE [id number] 10/12/2014 10/12/2014 [facility] EARACHE [id number] 10/12/2014 10/12/2014 [facility] EARACHE [id number] 10/12/2014 10/12/2014 [facility] EARACHE [id number] 10/12/2014 10/12/2014 [facility] EARACHE [id number] 10/12/2014 10/12/2014 [facility] EARACHE [id number] 10/12/2014 10/12/2014 [facility] EARACHE [id number] 10/12/2014 10/12/2014 [facility] EARACHE [id number] 10/12/2014 10/12/2014 [facility] EARACHE [id number] 10/12/2014 10/12/2014 [facility] EARACHE [id number] 10/12/2014 10/12/2014 [facility] [id number] Aime Garcia 01/03/2015 01/03/2015 [facility] STITCHES REMOVAL [id number] 01/11/2015 01/11/2015 [facility] STITCHES REMOVAL [id number] 01/11/2015 01/11/2015 [facility] STITCHES REMOVAL [id number] 01/11/2015 01/11/2015 [facility] STITCHES REMOVAL [id number] 01/11/2015 01/11/2015 [facility] STITCHES REMOVAL [id number] 01/11/2015 01/11/2015 [facility] STITCHES REMOVAL [id number] 01/11/2015 01/11/2015 [facility] STITCHES REMOVAL [id number] 01/11/2015 01/11/2015 [facility] STITCHES REMOVAL [id number] 01/11/2015 01/11/2015 [facility] STITCHES REMOVAL [id number] 01/11/2015 01/11/2015 [facility] STITCHES REMOVAL [id number] 01/11/2015 01/11/2015 [facility] STITCHES REMOVAL [id number] 01/11/2015 01/11/2015 [facility] possible allergic reaction that started last night [id number] 05/01/2015 05/01/2015 [facility] possible allergic reaction that started last night [id number] 05/01/2015 05/01/2015 [facility] possible allergic reaction that started last night [id number] 05/01/2015 05/01/2015 [facility] possible allergic reaction that started last night [id number] 05/01/2015 05/01/2015 [facility] possible allergic reaction that started last night [id number] 05/01/2015 05/01/2015 [facility] possible allergic reaction that started last night [id number] 05/01/2015 05/01/2015 [facility] possible allergic reaction that started last night [id number] 05/01/2015 05/01/2015 [facility] possible allergic reaction that started last night [id number] 05/01/2015 05/01/2015 [facility] possible allergic reaction that started last night [id number] 05/01/2015 05/01/2015 [facility] possible allergic reaction that started last night [id number] 05/01/2015 05/01/2015 [facility] possible allergic reaction that started last night [id number] 05/01/2015 05/01/2015 [facility] Ear pain [id number] 08/26/2015 08/26/2015 [facility] Ear pain [id number] 08/26/2015 08/26/2015 [facility] Ear pain [id number] 08/26/2015 08/26/2015 [facility] Ear pain [id number] 08/26/2015 08/26/2015 [facility] Ear pain [id number] 08/26/2015 08/26/2015 [facility] Ear pain [id number] 08/26/2015 08/26/2015 [facility] Ear pain [id number] 08/26/2015 08/26/2015 [facility] Ear pain [id number] 08/26/2015 08/26/2015 [facility] Ear pain [id number] 08/26/2015 08/26/2015 [facility] Ear pain [id number] 08/26/2015 08/26/2015 [facility] [id number] 09/18/2015 09/18/2015 [facility] Bladder [id number] 09/18/2015 09/18/2015 [facility] Bladder [id number] 09/18/2015 09/18/2015 [facility] Bladder [id number] 09/18/2015 09/18/2015 [facility] Bladder [id number] 09/18/2015 09/18/2015 [facility] Bladder [id number] 09/18/2015 09/18/2015 [facility] Bladder [id number] 09/18/2015 09/18/2015 [facility] Bladder [id number] 09/18/2015 09/18/2015 [facility] Bladder [id number] 09/18/2015 09/18/2015 [facility] Unknown [id number] 09/20/2015 09/20/2015 [facility] Unknown [id number] 09/20/2015 09/20/2015 [facility] Unknown [id number] 09/20/2015 09/20/2015 [facility] Unknown [id number] 09/20/2015 09/20/2015 [facility] Unknown [id number] 09/20/2015 09/20/2015 [facility] Unknown [id number] 09/20/2015 09/20/2015 [facility] Unknown [id number] 09/20/2015 09/20/2015 [facility] Unknown [id number] 09/20/2015 09/20/2015 [facility] Unknown [id number] 11/07/2015 11/07/2015 [facility] Unknown [id number] 11/07/2015 11/07/2015 [facility] Unknown [id number] 11/07/2015 11/07/2015 [facility] Unknown [id number] 11/07/2015 11/07/2015 [facility] Unknown [id number] 11/07/2015 11/07/2015 [facility] Unknown [id number] 11/07/2015 11/07/2015 [facility] Unknown [id number] 11/07/2015 11/07/2015 [facility] Bladder problems [id number] 12/09/2015 12/09/2015 [facility] Bladder problems [id number] 12/09/2015 12/09/2015 [facility] Bladder problems [id number] 12/09/2015 12/09/2015 [facility] Bladder problems [id number] 12/09/2015 12/09/2015 [facility] Bladder problems [id number] 12/09/2015 12/09/2015 [facility] Bladder problems [id number] 12/09/2015 12/09/2015 [facility] Sick Visit [id number] 02/28/2016 02/28/2016 [facility] Sick Visit [id number] 02/28/2016 02/28/2016 [facility] Sick Visit [id number] 02/28/2016 02/28/2016 [facility] Sick Visit [id number] 02/28/2016 02/28/2016 [facility] Sick Visit [id number] 02/28/2016 02/28/2016 [facility] Sore's inside lip/mouth [id number] 03/25/2016 03/25/2016 [facility] Sore's inside lip/mouth [id number] 03/25/2016 03/25/2016 [facility] Sore's inside lip/mouth [id number] 03/25/2016 03/25/2016 [facility] Sore's inside lip/mouth [id number] 03/25/2016 03/25/2016 [facility] earache [id number] 07/02/2016 07/02/2016 [facility] earache [id number] 07/02/2016 07/02/2016 [facility] earache [id number] 07/02/2016 07/02/2016 [facility] anxiety [id number] 08/31/2016 08/31/2016 [facility] anxiety [id number] 08/31/2016 08/31/2016 [facility] letter [id number] 09/01/2016 09/01/2016 [facility] [id number] Wilberto Cartagena 06/21/2017 06/21/2017 [facility] [id number] Baron Sima 07/24/2017 07/24/2017 [facility] [id number] Maynor Raymond 05/04/2018 05/04/2018 [facility] Room [id number] MELQUIADES QUIGLEY MD 08/29/2018 08/29/2018 [facility] Procedures Procedure Code Date Perfomer Comments Source CT of abdomen and pelvis without contrast [id number] 08/29/2018 ROL[facility]O [facility] Assessment and Plan No Data Provided for This Section Plan of Care Plan of Care Date Source Discharge Date 08/29/18 10:02pm Disposition HOME, SELF-CARE Condition at Discharge Stable Instructions/Education Provided Kidney Stones Forms Provided Work/School Excuse Prescriptions See Medication Section Referrals DEVAN FARNSWORTH DO Address: [address] [address] [facility] [place] [address] KAMI GARCIA MD Address: [address] [place] [address] Additional Instructions/Education Follow-up with Urologist in 1-2 days. Return to ER for new or worsening symptoms including but not limited to; worsening pain, fever, nausea, vomiting, or inability to urinate. STRAIN ALL URINE. 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 none August 31, 2016 Where or with whom do you live ? . mother August 31, 2016 Tobacco Use: . Are you a: never smoker August 31, 2016 Ethnicity . Status , Is mauritian your primary language? Yes August 31, 2016 [...] alcohol? . Status: No August 31, 2016 08/31/2016 [facility] Family History Value Date Source QualifierDescriptionCommentDate Reported Maternal Grandmother Comment not available Jul [...] Other: Comment not available Jul 02, 2016 07/04/2016 [facility] QualifierDescriptionCommentDate Reported Maternal Grandmother Comment not available Mar [...] Other: Comment not available Mar 25, 2016 03/27/2016 [facility] QualifierDescriptionCommentDate Reported Maternal Grandmother Comment not available Feb [...] Other: Comment not available Feb 28, 2016 03/05/2016 [facility] QualifierDescriptionCommentDate Reported Maternal Grandmother Comment not available December [...] Other: Comment not available December 09, 2015 12/11/2015 [facility] QualifierDescriptionCommentDate Reported Maternal Grandmother Comment not available September [...] Other: Comment not available September 18, 2015 09/20/2015 [facility] QualifierDescriptionCommentDate Reported Maternal Grandmother Comment not available Aug [...] Other: Comment not available Aug 26, 2015 08/28/2015 [facility] QualifierDescriptionCommentDate Reported Maternal Grandmother Comment not available May [...] Other: Comment not available May 01, 2015 05/03/2015 [facility] QualifierDescriptionCommentDate Reported Father alive healthy Jul 13, 2014 Mother alive multiple sclerosis Jul 13, 2014 Siblings alive healthy Jul 13, 2014 07/14/2014 [facility] QualifierDescriptionCommentDate Reported Father alive healthy December 19, 2013 Mother alive multiple sclerosis December 19, 2013 Siblings alive healthy December 19, 2013 12/28/2013 [facility] QualifierDescriptionCommentDate Reported Father alive healthy Jul 26, 2013 Mother alive multiple sclerosis Jul 26, 2013 Siblings alive healthy Jul 26, 2013 07/29/2013 [facility] Advance Directives Order Name Results Value Date Source Advance Directives Advance Directives Directive Response Recorded Date/Time Does the patient have an advance directive? No 08/29/18 4:48pm Do you have a Directive to Physician? No 08/29/18 4:48pm Do you have a Medical Power of Director [employer]? No 08/29/18 4:48pm Do you have an out of hospital Do Not Resuscitate Order? No 08/29/18 4:48pm Do you have any special needs we should be aware of? No 08/29/18 4:48pm Do you have a support person here with you today? Yes 08/29/18 4:48pm Did patient receive Notice of Privacy Practices? Yes 08/29/18 4:48pm Did patient receive patient rights and responsibilities? Yes 08/29/18 4:48pm 08/29/2018 [facility] Functional Status No Data Provided for This Section
--- OUTSIDE RECORDS SUMMARY | 2019-02-02 08:02 | XMS REPORT | Summary of Care ---
Author Author [facility] Organization [facility] Address Unknown Phone Unavailable Care Team Providers Care Lpta Name Role Phone Roberto Carlos De Los Santos PCP Encounter [facility]) [id number] Date(s): 05/03/18 - 05/04/18 [facility] [address] [place] [address]- Encounter Diagnosis Allergic reaction (Discharge Diagnosis) - 05/03/18 Eye swelling (Discharge Diagnosis) - 05/03/18 Allergy, unspecified, initial encounter (Final) - 05/09/18 Other specified disorders of eye and adnexa (Final) - Localized swelling, mass and lump, head (Final) - Discharge Disposition: Home or Self Care Attending Physician: Maynor Andrade MD Vital Signs Most recent to 1 2 oldest [Reference Range]: Height 152.4 cm (05/03/18 10:36 PM) Temperature Oral 97.9 DegF 98.1 DegF [96.4-99.1 DegF] (05/04/18 12:50 AM) (05/03/18 10:36 PM) Blood Pressure 124/52 mmHg 133/89 mmHg [90-140/60-90 mmHg] (05/04/18 12:50 AM) (05/03/18 10:36 PM) Respiratory Rate 16 BRMIN 18 BRMIN [14-20 BRMIN] (05/04/18 12:50 AM) (05/03/18 10:36 PM) Peripheral Pulse 66 bpm 71 bpm Rate [60-100 bpm] (05/04/18 12:50 AM) (05/03/18 10:36 PM) Weight 64.545 kg (05/03/18 10:36 PM) Body Mass Index 27.79 m2 (05/03/18 10:36 PM) Problem List No data available for this section Allergies, Adverse Reactions, Alerts No Known Medication Allergies Medications Benadryl 25 mg, 1 tab, Route: PO, Drug form: TAB, ONCE, Dosing Weight 65.909, kg, Priorit y: STAT, Start date: 05/03/18 22:37: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, Stop date: 05/03/18 22:37: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 Start Date: 05/03/18 Stop Date: 05/03/18 Status: Completed dexamethasone 10 mg, 2.5 mL, Route: IM, Drug form: INJ, ONCE, Dosing Weight 65.909, kg, Priori ty: STAT, Start date: 05/03/18 22:37: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, Stop date: 05/03/18 22:37: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 Start Date: 05/03/18 Stop Date: 05/03/18 Status: Completed Pepcid 40 mg oral tablet 20 mg, 1 tab, Route: PO, Drug form: TAB, ONCE, Dosing Weight 65.909, kg, Start d ate: 05/03/18 22:37: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, Stop date: 05/03/18 22:37: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
== END 2019-02-02 08:58 | disposition home or self-care (01) ==
LOC: ER 07:56
DX: J02.0 Streptococcal pharyngitis (principal)
CPT/HCPCS: 99282

== ENCOUNTER 2019-02-20 21:06 | Emergency (ER) | payer BC ==
[~2019-02-20] VITALS: Ht 152.4 cm; Wt 52.6 kg
--- OUTSIDE RECORDS SUMMARY | 2019-02-20 21:09 | XMS REPORT | Continuity of Care Document ---
Author Author [employer] Address Unknown Phone Unavailable Care Team Providers Care Trade Marker Name Role Phone [employer] Information [facility] Unavailable Unavailable Problems Problem Status Onset Date Classification Date Reported Comments Source Allergy, unspecified, initial encounter 05/10/2018 11/21/2018 [facility] Allergic reaction 05/03/2018 11/21/2018 [facility] Eye swelling 05/03/2018 11/21/2018 [facility] EYE PAIN OR INJURY Active 05/03/2018 [facility] Influenza due to other identified influenza virus with other respiratory manifestations 07/29/2017 10/30/2017 [facility] Influenza A 07/24/2017 10/30/2017 [facility] FLU LIKE SYMPTOMS Active 07/24/2017 [facility] Discharge Diagnosis: Viral URI with cough 06/21/2017 06/24/2017 [facility] COLD Active 06/21/2017 [facility] Discharge Diagnosis: Laceration 01/02/2015 01/05/2015 [facility] LEFT HAND LACERATION Active 01/02/2015 [facility] Depression, unspecified depression type Active Problem [...] specified disorders of eye and adnexa 11/21/2018 [facility] Localized swelling, mass and lump, head 11/21/2018 [facility] Medications Medication Details Route Status Patient Instructions Ordering Provider Order Date Source Amoxicillin 1 tablet Orally Active 500 MG Orally every 12 hrs Aaron 08/03/2018 [facility] Estrostep Fe 1 tablet Orally Active 1-20/1-30/1-35 MG-MCG Orally Once a day Aaron 07/25/2018 [facility] NuvaRing 1 ring Vaginal Active 0.12-0.015 MG/24HR Vaginal for 3 weeks Zeke 07/23/2018 [facility] Famotidine 40 MG Oral Tablet [Pepcid] 20 mg, 1 tab, Route: PO, Drug form: TAB, ONCE, Dosing Weight 65.909, kg, Start date: 05/03/18 22:37:00 MANAGER PHOTOGRAPHY, Stop date: 05/03/18 22:37:00 CSTNotes: (Same as: Pepcid) Inactive 05/04/2018 [facility] Dexamethasone 10 mg, 2.5 mL, Route: IM, Drug form: INJ, ONCE, Dosing Weight 65.909, kg, Priority: STAT, Start date: 05/03/18 22:37:00 MANAGER PHOTOGRAPHY, Stop date: 05/03/18 22:37:00 MANAGER PHOTOGRAPHY Inactive 05/04/2018 [facility] Benadryl 25 mg, 1 tab, Route: PO, Drug form: TAB, ONCE, Dosing Weight 65.909, kg, Priority: STAT, Start date: 05/03/18 22:37:00 MANAGER PHOTOGRAPHY, Stop date: 05/03/18 22:37:00 MANAGER PHOTOGRAPHY Inactive 05/04/2018 [facility] Augmentin 1 tablet Orally Active 875-125 MG Orally every 12 hrs [place] 04/11/2018 [facility] Medrol as directed & to be started thurs am as discussed in clinic Orally Active 4 mg Orally as directed [place] 04/11/2018 [facility] Sertraline HCl 1 tablet Orally Active 50 mg Orally Once a day [place] 10/19/2017 [facility] Sertraline HCl 1 tablet by mouth Active 100 MG by mouth Once a day [place] 10/04/2017 [facility] Sertraline HCl 1 tablet Orally Active 50 mg Orally Once a day [place] 10/04/2017 [facility] Acetaminophen 325 MG Oral Tablet [Tylenol] 650 mg=2 tab, PO, Q6H, PRN Fever, X 5 day, # 24 tab, 0 Refill(s) No Longer Active 07/24/2017 [facility] Tylenol 650 mg, Route: PO, Drug form: TAB, ONCE, Dosing Weight 65.909, kg, Priority: STAT, Start date: 07/24/17 11:04:00 MANAGER PHOTOGRAPHY, Stop date: 07/24/17 11:04:00 MANAGER PHOTOGRAPHY Inactive 07/24/2017 [facility] benzonatate 200 MG Oral Capsule [Tessalon] 200 mg=1 cap, PO, TID, X 7 day, # 21 cap, 0 Refill(s) Active 06/21/2017 [facility] Amoxicillin 1 capsule Orally Active 500 MG Orally twice a day Yogi 03/25/2017 [facility] Lexapro 1 tablet Orally Active 10 MG Orally Once a day [place] 08/31/2016 [facility] Lexapro 1 tablet Orally Active 10 MG Orally Once a day Yogi 08/31/2016 [facility] magic mouthwash 1 tsp (gargle and spit) PO Active 1:1:1 PO Q6 PRN Yogi 03/25/2016 [facility] Zithromax 2 tablets on the first day, then 1 tablet daily for 4 days Orally Active 250 MG Orally Once a day Yogi 02/28/2016 [facility] Bactrim DS 1 tablet Orally Active 800-160 MG Orally twice a day Yogi 12/09/2015 [facility] Diflucan 1 tablet Orally Active 200 MG Orally once [place] 12/09/2015 [facility] Diflucan 1 tablet Orally Active 200 MG Orally Once a day [place] 09/20/2015 [facility] Enskyce 1 tablet Orally Active 0.15-30 MG-MCG Orally Once a day Yogi 09/18/2015 [facility] Macrobid 1 capsule with food Orally Active 100 mg Orally twice a day Yogi 09/18/2015 [facility] Augmentin 1 tablet Orally Active 500-125 MG Orally Twice a day [place]o 12/19/2013 [facility] Augmentin 1 tablet Orally Active 500-125 MG Orally Twice a day Lance 07/26/2013 [facility] Bromfed DM 10 ml as needed Orally Active 30-2-10 MG/5ML Orally every 6 hrs Lance 07/26/2013 [facility] Kristan Allergy 1 tablet as needed Orally Active 180 MG Orally Once a day PRN Ron [facility] Zyrtec Allergy 1 tablet Orally Active 10 mg Orally Once a day PRN Aaron Lamb [facility] Zyrtec Allergy 1 tablet Orally Active 10 mg Orally Once a day PRN Ron Lamb [facility] Kristan Allergy 1 tablet as needed Orally Active 180 MG Orally Once a day PRN Ron [facility] Sinus Congestion/Pain Day/Nght as directed Orally Active 2-5-325 & 5-325 MG Orally Deo [facility] Ear Wax Drops Unknown Otic Active 6.5 % Otic Yogi [facility] Advil 1 tablet as needed Orally Active 200 MG Orally prn Yogi [facility] Sertraline Hcl 50 Mg Tablet Daily Active [facility] Allergies, Adverse Reactions, Alerts Substance Category Reaction Severity Reaction type Status Date Reported Comments Source N.K.D.A. Adverse Reaction Info Not Available Adverse Reaction Active 08/13/2018 [facility] No Known Medication Allergies Assertion Drug allergy [facility] Immunizations No Data Provided for This Section Results Order Name Results Value Reference Range Date Interpretation Comments Source Blood leukocytes automated count (number/volume) 14.39 4.8 - 10.8 08/29/2018 [facility] Blood erythrocytes automated count (number/volume) 5.16 3.6 - 5.1 08/29/2018 [facility] Blood hemoglobin measurement (moles/volume) 14.4 12.0 - 16.0 08/29/2018 [facility] Automated blood hematocrit (volume fraction) 43.5 34.2 - 44.1 08/29/2018 [facility] Automated erythrocyte mean corpuscular volume 84.3 81 - 99 08/29/2018 [facility] Automated erythrocyte mean corpuscular hemoglobin (mass per erythrocyte) 27.9 28 - 32 08/29/2018 [facility] Automated erythrocyte mean corpuscular hemoglobin concentration measurement (mass/volume) 33.1 31 - 35 08/29/2018 [facility] RDW BldCo-Rto 13.1 11.7 - 14.4 08/29/2018 [facility] Automated blood platelet count (count/volume) 271 140 - 360 08/29/2018 [facility] Automated blood segmented neutrophil count as percentage of total leukocytes 67.1 38.7 - 80.0 08/29/2018 [facility] Automated blood lymphocyte count as percentage ot total leukocytes 23.6 18.0 - 39.1 08/29/2018 [facility] Automated blood monocyte count as percentage of total leukocytes 7.1 4.4 - 11.3 08/29/2018 [facility] Automated blood eosinophil count as percentage of total leukocytes 1.4 0.0 - 6.0 08/29/2018 [facility] Automated blood basophil count as percentage of total leukocytes 0.3 0.0 - 1.0 08/29/2018 [facility] IM GRANULOCYTES % 0.5 0.0 - 1.0 08/29/2018 [facility] Automated blood neutrophil count 9.7 2.1 - 6.9 08/29/2018 [facility] Blood lymphocytes count (number/volume) 3.4 1.0 - 3.2 08/29/2018 [facility] Blood monocytes automated count (number/volume) 1.0 0.2 - 0.8 08/29/2018 [facility] Automated blood eosinophil count 0.2 0.0 - 0.4 08/29/2018 [facility] Automated blood basophil count (count/volume) 0.0 0.0 - 0.1 08/29/2018 [facility] Absolute Immature Granulocyte (auto 0.07 0 - 0.1 08/29/2018 [facility] Serum or plasma sodium measurement (moles/volume) 137 136 - 145 08/29/2018 [facility] Serum or plasma potassium measurement (moles/volume) 3.6 3.5 - 5.1 08/29/2018 [facility] Serum or plasma chloride measurement (moles/volume) 106 98 - 107 08/29/2018 [facility] Serum or plasma carbon dioxide, total measurement (moles/volume) 20 22 - 29 08/29/2018 [facility] Serum or plasma anion gap 14.6 8 - 16 08/29/2018 [facility] Serum or plasma urea nitrogen measurement (mass/volume) 11 7 - 26 08/29/2018 [facility] Serum or plasma creatinine measurement (mass/volume) 0.72 0.57 - 1.11 08/29/2018 [facility] Serum or plasma urea nitrogen/creatinine mass ratio 15 6 - 25 08/29/2018 [facility] Estimated glomerular filtration rate (GFR) determination > 60 60 08/29/2018 [facility] Glucose measurement 87 74 - 118 08/29/2018 [facility] Serum or plasma calcium measurement (mass/volume) 9.5 8.4 - 10.2 08/29/2018 [facility] Serum or plasma total bilirubin measurement (mass/volume) 0.3 0.2 - 1.2 08/29/2018 [facility] Aspartate Amino Transf (AST/SGOT) 16 5 - 34 08/29/2018 [facility] Serum or plasma alanine aminotransferase measurement (enzymatic activity/volume) 13 0 - 55 08/29/2018 [facility] Serum or plasma protein measurement (mass/volume) 7.7 6.5 - 8.1 08/29/2018 [facility] Serum or plasma albumin measurement (mass/volume) 3.9 3.5 - 5.0 08/29/2018 [facility] Plasma globulin measurement (mass/volume) 3.8 2.3 - 3.5 08/29/2018 [facility] Serum or plasma albumin/globulin mass ratio 1.0 0.8 - 2.0 08/29/2018 [facility] Serum or plasma alkaline phosphatase measurement (enzymatic activity/volume) 65 40 - 150 08/29/2018 [facility] Serum or plasma amylase measurement (enzymatic activity/volume) 77 25 - 125 08/29/2018 [facility] Serum or plasma lipase measurement (enzymatic activity/volume) 29 8 - 78 08/29/2018 [facility] Urine color determination YELLOW YELLOW 08/29/2018 [facility] Urine clarity SL CLOUDY CLEAR 08/29/2018 [facility] Specific gravity of Urine by Test strip 1.010 1.010 - 1.025 08/29/2018 [facility] Urine pH measurement by automated test strip 6 5 - 7 08/29/2018 [facility] Urine leukocyte esterase detection by dipstick NEGATIVE NEGATIVE 08/29/2018 [facility] Urine nitrite detection NEGATIVE NEGATIVE 08/29/2018 [facility] Urine protein measurement by test strip (mass/volume) NEGATIVE NEGATIVE 08/29/2018 [facility] Urine glucose detection NEGATIVE NEGATIVE 08/29/2018 [facility] Urine ketones detection by automated test strip NEGATIVE NEGATIVE 08/29/2018 [facility] Urine urobilinogen measurement by test strip (mass/volume) 0.2 0.2 - 1 08/29/2018 [facility] Urine total bilirubin measurement (mass/volume) NEGATIVE NEGATIVE 08/29/2018 [facility] Urine erythrocytes detection 2+ NEGATIVE 08/29/2018 [facility] Automated urine sediment leukocyte count by microscopy (number/high power field) NONE 0 - 5 08/29/2018 [facility] Erythrocytes detection in urine sediment by light microscopy 6-10 0 - 5 08/29/2018 [facility] Bacteria detection in urine sediment by light microscopy FEW NONE 08/29/2018 [facility] Epithelial cells detection in urine sediment by light microscopy NONE NONE 08/29/2018 [facility] Urine human chorionic gonadotropin (hCG) detection NEGATIVE NEGATIVE 08/29/2018 [facility] RAPID Grp A Strep Scr Negative (07/24/17 11:11 AM) Negative 07/24/2017 [facility] VIRAL - SEROLOGY Influ B Negative (07/24/17 11:11 AM) Negative 07/24/2017 [facility] VIRAL - SEROLOGY Influ A Positive 1 *ABN* (07/24/17 11:11 AM) Negative 07/24/2017 Result Comment: "Significant Findings called to Michelle Schuler at 07/24/2017 11:38 by HT. Read Back OK." [facility] RAPID Grp A Strep Scr Negative (06/21/17 1:57 AM) Negative 06/21/2017 [facility] Pathology Reports No Data Provided for [...] unremarkable. IMPRESSION: No acute cardiopulmonary disease. SL: [id number] 07/24/2017 [facility] Chest 2 views DX XR CHEST 2 VIEWS HISTORY: - cough COMPARISON: None. FINDINGS: The lungs are clear. The heart and vascular markings are normal. No pleural abnormality. The bones are intact. IMPRESSION: No active process. SL: DIYA 06/21/2017 [facility] Consultation Notes No Data Provided for [...] [facility] Systolic (mm Hg) 98 07/23/2018 [facility] Systolic (mm Hg) 124 05/04/2018 [facility] Diastolic (mm Hg) 52 05/04/2018 [facility] Respitory Rate 16 05/04/2018 [facility] Heart Rate 66 05/04/2018 [facility] Temperature Oral (F) 97.9 F 05/04/2018 [facility] Temperature Oral (F) 98.1 F 05/04/2018 [facility] Heart Rate 71 05/04/2018 [facility] Respitory Rate 18 05/04/2018 [facility] Systolic (mm Hg) 133 05/04/2018 [facility] Diastolic (mm Hg) 89 05/04/2018 [facility] Weight 64.545 05/04/2018 [facility] BMI Calculated 27.79 05/04/2018 [facility] Height 152.4 cm 05/04/2018 [facility] [...] [facility] Temperature Oral (F) 98.4 F 07/24/2017 [facility] Heart Rate 88 07/24/2017 [facility] Respitory Rate 20 07/24/2017 [facility] Systolic (mm Hg) 118 07/24/2017 [facility] Diastolic (mm Hg) 78 07/24/2017 [facility] Height 152.4 cm 07/24/2017 [facility] Temperature Oral (F) 101.1 F 07/24/2017 [facility] BMI Calculated 28.38 07/24/2017 [facility] Weight 65.909 07/24/2017 [facility] Heart Rate 124 07/24/2017 [facility] Respitory Rate 20 07/24/2017 [facility] Systolic (mm Hg) 126 07/24/2017 [facility] Diastolic (mm Hg) 76 07/24/2017 [facility] Heart Rate 86 06/21/2017 [facility] Respitory Rate 18 06/21/2017 [facility] Systolic (mm Hg) 106 06/21/2017 [facility] Diastolic (mm Hg) 71 06/21/2017 [facility] Height 152.4 cm 06/21/2017 [facility] BMI Calculated 27.4 06/21/2017 [facility] Weight 63.636 06/21/2017 [facility] Temperature Oral (F) 98.4 F 06/21/2017 [facility] Respitory Rate 18 06/21/2017 [facility] Heart Rate 93 06/21/2017 [facility] Systolic (mm Hg) 127 06/21/2017 [facility] Diastolic (mm Hg) 83 06/21/2017 [facility] Weight 153 03/25/2017 [facility] Diastolic (mm Hg) 70 03/25/2016 [facility] Systolic (mm [...] [facility] Systolic (mm Hg) 108 05/01/2015 [facility] Respitory Rate 14 01/03/2015 [facility] Systolic (mm Hg) 120 01/03/2015 [facility] Diastolic (mm Hg) 70 01/03/2015 [facility] Temperature Oral (F) 98.4 F 01/03/2015 [facility] Heart Rate 85 01/03/2015 [facility] Height 152.4 cm 01/03/2015 [facility] BMI Calculated 23.48 01/03/2015 [facility] Weight 54.545 01/03/2015 [facility] Systolic (mm Hg) 129 01/03/2015 [facility] Diastolic (mm Hg) 83 01/03/2015 [facility] Heart Rate 89 01/03/2015 [facility] Respitory Rate 20 01/03/2015 [facility] Temperature Oral (F) 98.3 F 01/03/2015 [facility] Weight 129 07/13/2014 [facility] Heart Rate 88 07/26/2013 [facility] Diastolic (mm Hg) 72 07/26/2013 [facility] Systolic (mm Hg) 104 07/26/2013 [facility] Encounters Location Location Details Encounter Type Encounter Number Reason For Visit Attending Provider ADM Date DC Date Status Source [facility] sore throat [id number] 07/26/2013 07/26/2013 [facility] sore throat [id number] 07/26/2013 07/26/2013 [facility] sore throat [id number] 07/26/2013 07/26/2013 [facility] sore throat [id number] 07/26/2013 07/26/2013 [facility] sore throat [id number] 07/26/2013 07/26/2013 [facility] sore throat [id number] 07/26/2013 07/26/2013 [facility] sore throat [id number] 07/26/2013 07/26/2013 [facility] sore throat [id number] 07/26/2013 07/26/2013 [facility] sore throat [id number] 07/26/2013 07/26/2013 [facility] sore throat [id number] 07/26/2013 07/26/2013 [facility] sore throat [id number] 07/26/2013 07/26/2013 [facility] sore throat [id number] 07/26/2013 07/26/2013 [facility] sore throat [id number] 07/26/2013 07/26/2013 [facility] sore throat [id number] 07/26/2013 07/26/2013 [facility] sore throat [id number] 07/26/2013 07/26/2013 [facility] sore throat [id number] 07/26/2013 07/26/2013 [facility] Unknown [id number] 08/14/2013 08/14/2013 [facility] Unknown [id number] 08/14/2013 08/14/2013 [facility] Unknown [id number] 08/14/2013 08/14/2013 [facility] Unknown [id number] 08/14/2013 08/14/2013 [facility] Unknown [id number] 08/14/2013 08/14/2013 [facility] Unknown [id number] 08/14/2013 08/14/2013 [facility] Unknown [id number] 08/14/2013 08/14/2013 [facility] Unknown [id number] 08/14/2013 08/14/2013 [facility] Unknown [id number] 08/14/2013 08/14/2013 [facility] Unknown [id number] 08/14/2013 08/14/2013 [facility] Unknown [id number] 08/14/2013 08/14/2013 [facility] Unknown [id number] 08/14/2013 08/14/2013 [facility] Unknown [id number] 08/14/2013 08/14/2013 [facility] Unknown [id number] 08/14/2013 08/14/2013 [facility] Unknown [id number] 08/14/2013 08/14/2013 [facility] fever 102 and sore throat [id number] 12/19/2013 12/19/2013 [facility] fever 102 and sore throat [id number] 12/19/2013 12/19/2013 [facility] fever 102 and sore throat [id number] 12/19/2013 12/19/2013 [facility] fever 102 and sore throat [id number] 12/19/2013 12/19/2013 [facility] fever 102 and sore throat [id number] 12/19/2013 12/19/2013 [facility] fever 102 and sore throat [id number] 12/19/2013 12/19/2013 [facility] fever 102 and sore throat [id number] 12/19/2013 12/19/2013 [facility] [facility] fever 102 and sore throat [id number] 12/19/2013 12/19/2013 [facility] fever 102 and sore throat [id number] 12/19/2013 12/19/2013 [facility] fever 102 and sore throat [id number] 12/19/2013 12/19/2013 [facility] fever 102 and sore throat [id number] 12/19/2013 12/19/2013 [facility] fever 102 and sore throat [id number] 12/19/2013 12/19/2013 [facility] fever 102 and sore throat [id number] 12/19/2013 12/19/2013 [facility] fever 102 and sore throat [id number] 12/19/2013 12/19/2013 [facility] Referral to Ortho [id number] 03/16/2014 03/16/2014 [facility] Referral to Ortho [id number] 03/16/2014 03/16/2014 [facility] Referral to Ortho [id number] 03/16/2014 03/16/2014 [facility] Referral to Ortho [id number] 03/16/2014 03/16/2014 [facility] Referral to Ortho [id number] 03/16/2014 03/16/2014 [facility] Referral to Ortho [id number] 03/16/2014 03/16/2014 [facility] Referral to Ortho [id number] 03/16/2014 03/16/2014 [facility] Referral to Ortho [id number] 03/16/2014 03/16/2014 [facility] Referral to Ortho [id number] 03/16/2014 03/16/2014 [facility] Referral to Ortho [id number] 03/16/2014 03/16/2014 [facility] Referral to Ortho [id number] 03/16/2014 03/16/2014 [facility] Referral to Ortho [id number] 03/16/2014 03/16/2014 [facility] Referral to Ortho [id number] 03/16/2014 03/16/2014 [facility] FEVER [id number] 07/13/2014 07/13/2014 [facility] FEVER [id number] 07/13/2014 07/13/2014 [facility] FEVER [id number] 07/13/2014 07/13/2014 [facility] FEVER [id number] 07/13/2014 07/13/2014 [facility] FEVER [id number] 07/13/2014 07/13/2014 [facility] FEVER [id number] 07/13/2014 07/13/2014 [facility] FEVER [id number] 07/13/2014 07/13/2014 [facility] FEVER [id number] 07/13/2014 07/13/2014 [facility] FEVER [id number] 07/13/2014 07/13/2014 [facility] FEVER [id number] 07/13/2014 07/13/2014 [facility] FEVER [id number] 07/13/2014 07/13/2014 [facility] FEVER [id number] 07/13/2014 07/13/2014 [facility] BLADDER [id number] 08/13/2014 08/13/2014 [facility] BLADDER [id number] 08/13/2014 08/13/2014 [facility] BLADDER [id number] 08/13/2014 08/13/2014 [facility] BLADDER [id number] 08/13/2014 08/13/2014 [facility] BLADDER [id number] 08/13/2014 08/13/2014 [facility] BLADDER [id number] 08/13/2014 08/13/2014 [facility] BLADDER [id number] 08/13/2014 08/13/2014 [facility] BLADDER [id number] 08/13/2014 08/13/2014 [facility] BLADDER [id number] 08/13/2014 08/13/2014 [facility] BLADDER [id number] 08/13/2014 08/13/2014 [facility] BLADDER [id number] 08/13/2014 08/13/2014 [facility] BLADDER [id number] 10/03/2014 10/03/2014 [facility] BLADDER [id number] 10/03/2014 10/03/2014 [facility] BLADDER [id number] 10/03/2014 10/03/2014 [facility] BLADDER [id number] 10/03/2014 10/03/2014 [facility] BLADDER [id number] 10/03/2014 10/03/2014 [facility] BLADDER [id number] 10/03/2014 10/03/2014 [facility] BLADDER [id number] 10/03/2014 10/03/2014 [facility] BLADDER [id number] 10/03/2014 10/03/2014 [facility] BLADDER [id number] 10/03/2014 10/03/2014 [facility] BLADDER [id number] 10/03/2014 10/03/2014 [facility] BLADDER [id number] 10/03/2014 10/03/2014 [facility] Labs [id number] 10/09/2014 10/09/2014 [facility] Labs [id number] 10/09/2014 10/09/2014 [facility] Labs [id number] 10/09/2014 10/09/2014 [facility] Labs [id number] 10/09/2014 10/09/2014 [facility] Labs [id number] 10/09/2014 10/09/2014 [facility] Labs [id number] 10/09/2014 10/09/2014 [facility] Labs [id number] 10/09/2014 10/09/2014 [facility] Labs [id number] 10/09/2014 10/09/2014 [facility] Labs [id number] 10/09/2014 10/09/2014 [facility] Labs [id number] 10/09/2014 10/09/2014 [facility] Labs [id number] 10/09/2014 10/09/2014 [facility] EARACHE [id number] 10/12/2014 10/12/2014 [facility] EARACHE [id number] 10/12/2014 10/12/2014 [facility] EARACHE [id number] 10/12/2014 10/12/2014 [facility] EARACHE [id number] 10/12/2014 10/12/2014 [facility] EARACHE [id number] 10/12/2014 10/12/2014 [facility] EARACHE [id number] 10/12/2014 10/12/2014 [facility] EARACHE [id number] 10/12/2014 10/12/2014 [facility] EARACHE [id number] 10/12/2014 10/12/2014 [facility] EARACHE [id number] 10/12/2014 10/12/2014 [facility] EARACHE [id number] 10/12/2014 10/12/2014 [facility] EARACHE [id number] 10/12/2014 10/12/2014 [facility] [id number] Aime Garcia 01/03/2015 01/03/2015 [facility] STITCHES REMOVAL [id number] 01/11/2015 01/11/2015 [facility] STITCHES REMOVAL [id number] 01/11/2015 01/11/2015 [facility] STITCHES REMOVAL [id number] 01/11/2015 01/11/2015 [facility] STITCHES REMOVAL [id number] 01/11/2015 01/11/2015 [facility] STITCHES REMOVAL [id number] 01/11/2015 01/11/2015 [facility] STITCHES REMOVAL [id number] 01/11/2015 01/11/2015 [facility] STITCHES REMOVAL [id number] 01/11/2015 01/11/2015 [facility] STITCHES REMOVAL [id number] 01/11/2015 01/11/2015 [facility] STITCHES REMOVAL [id number] 01/11/2015 01/11/2015 [facility] STITCHES REMOVAL [id number] 01/11/2015 01/11/2015 [facility] STITCHES REMOVAL [id number] 01/11/2015 01/11/2015 [facility] possible allergic reaction that started last night [id number] 05/01/2015 05/01/2015 [facility] possible allergic reaction that started last night [id number] 05/01/2015 05/01/2015 [facility] possible allergic reaction that started last night [id number] 05/01/2015 05/01/2015 [facility] possible allergic reaction that started last night [id number] 05/01/2015 05/01/2015 [facility] possible allergic reaction that started last night [id number] 05/01/2015 05/01/2015 [facility] possible allergic reaction that started last night [id number] 05/01/2015 05/01/2015 [facility] possible allergic reaction that started last night [id number] 05/01/2015 05/01/2015 [facility] possible allergic reaction that started last night [id number] 05/01/2015 05/01/2015 [facility] possible allergic reaction that started last night [id number] 05/01/2015 05/01/2015 [facility] possible allergic reaction that started last night [id number] 05/01/2015 05/01/2015 [facility] possible allergic reaction that started last night [id number] 05/01/2015 05/01/2015 [facility] Ear pain [id number] 08/26/2015 08/26/2015 [facility] Ear pain [id number] 08/26/2015 08/26/2015 [facility] Ear pain [id number] 08/26/2015 08/26/2015 [facility] Ear pain [id number] 08/26/2015 08/26/2015 [facility] Ear pain [id number] 08/26/2015 08/26/2015 [facility] Ear pain [id number] 08/26/2015 08/26/2015 [facility] Ear pain [id number] 08/26/2015 08/26/2015 [facility] Ear pain [id number] 08/26/2015 08/26/2015 [facility] Ear pain [id number] 08/26/2015 08/26/2015 [facility] Ear pain [id number] 08/26/2015 08/26/2015 [facility] [id number] 09/18/2015 09/18/2015 [facility] Bladder [id number] 09/18/2015 09/18/2015 [facility] Bladder [id number] 09/18/2015 09/18/2015 [facility] Bladder [id number] 09/18/2015 09/18/2015 [facility] Bladder [id number] 09/18/2015 09/18/2015 [facility] Bladder [id number] 09/18/2015 09/18/2015 [facility] Bladder [id number] 09/18/2015 09/18/2015 [facility] Bladder [id number] 09/18/2015 09/18/2015 [facility] Bladder [id number] 09/18/2015 09/18/2015 [facility] Unknown [id number] 09/20/2015 09/20/2015 [facility] Unknown [id number] 09/20/2015 09/20/2015 [facility] Unknown [id number] 09/20/2015 09/20/2015 [facility] Unknown [id number] 09/20/2015 09/20/2015 [facility] Unknown [id number] 09/20/2015 09/20/2015 [facility] Unknown [id number] 09/20/2015 09/20/2015 [facility] Unknown [id number] 09/20/2015 09/20/2015 [facility] Unknown [id number] 09/20/2015 09/20/2015 [facility] Unknown [id number] 11/07/2015 11/07/2015 [facility] Unknown [id number] 11/07/2015 11/07/2015 [facility] Unknown [id number] 11/07/2015 11/07/2015 [facility] Unknown [id number] 11/07/2015 11/07/2015 [facility] Unknown [id number] 11/07/2015 11/07/2015 [facility] Unknown [id number] 11/07/2015 11/07/2015 [facility] Unknown [id number] 11/07/2015 11/07/2015 [facility] Bladder problems [id number] 12/09/2015 12/09/2015 [facility] Bladder problems [id number] 12/09/2015 12/09/2015 [facility] Bladder problems [id number] 12/09/2015 12/09/2015 [facility] [facility] Bladder problems [id number] 12/09/2015 12/09/2015 [facility] Bladder problems [id number] 12/09/2015 12/09/2015 [facility] Bladder problems [id number] 12/09/2015 12/09/2015 [facility] Sick Visit [id number] 02/28/2016 02/28/2016 [facility] Sick Visit [id number] 02/28/2016 02/28/2016 [facility] Sick Visit [id number] 02/28/2016 02/28/2016 [facility] Sick Visit [id number] 02/28/2016 02/28/2016 [facility] Sick Visit [id number] 02/28/2016 02/28/2016 [facility] Sore's inside lip/mouth [id number] 03/25/2016 03/25/2016 [facility] Sore's inside lip/mouth [id number] 03/25/2016 03/25/2016 [facility] Sore's inside lip/mouth [id number] 03/25/2016 03/25/2016 [facility] Sore's inside lip/mouth [id number] 03/25/2016 03/25/2016 [facility] earache [id number] 07/02/2016 07/02/2016 [facility] earache [id number] 07/02/2016 07/02/2016 [facility] earache [id number] 07/02/2016 07/02/2016 [facility] anxiety [id number] 08/31/2016 08/31/2016 [facility] anxiety [id number] 08/31/2016 08/31/2016 [facility] letter [id number] 09/01/2016 09/01/2016 [facility] Emergency [id number] Wilberto Cartagena 06/21/2017 06/21/2017 [facility] Emergency [id number] Baron Sima 07/24/2017 07/24/2017 [facility] Emergency [id number] Maynor Raymond 05/04/2018 05/04/2018 [facility] Emergency Room [id number] MELQUIADES QUIGLEY MD 08/29/2018 08/29/2018 [facility] Procedures Procedure Code Date Perfomer Comments Source CT of abdomen and pelvis without contrast [id number] 08/29/2018 [facility] Assessment and Plan No Data Provided for This Section Plan of Care Plan of Care Date Source Discharge Date 08/29/18 10:02pm Disposition HOME, SELF-CARE Condition at Discharge Stable Instructions/Education Provided Kidney Stones Forms Provided Work/School Excuse Prescriptions See Medication Section Referrals DEVAN FARNSWORTH DO Address: [address] [facility] [place] [address] KAMI GARCIA MD Address: [address] [place] [address] Additional Instructions/Education Follow-up with Urologist in 1-2 days. Return to ER for new or worsening symptoms including but not limited to; worsening pain, fever, nausea, vomiting, or inability to urinate. STRAIN ALL URINE. 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 none August 31, 2016 Where or with whom do you live ? . mother August 31, 2016 Tobacco Use: . Are you a: never smoker August 31, 2016 Ethnicity . Status , Is british your primary language? Yes August 31, 2016 [...] Do you have a Medical Power of Pediatric Occupational Therapist? No 08/29/18 4:48pm Do you have an [...] rights and responsibilities? Yes 08/29/18 4:48pm 08/29/2018 [facility] Functional Status No Data Provided for This Section
== END 2019-02-20 23:20 | disposition left against medical advice (07) ==
LOC: ER 21:06
DX: J34.89 Other specified disorders of nose and nasal sinuses (principal)

== ENCOUNTER 2020-07-24 20:44 | Inpatient (IN) | payer BC, OTHER ==
[~2020-07-24] VITALS: Ht 152.4 cm; Wt 52.6 kg
[2020-07-24] MEDS ORDERED: ACETAMINOPHEN 325 MG TAB PO ONE (21:15)
[2020-07-24 21:26] LABS: BASOPHILS # (AUTO) 0.1 (0.0-0.1); BASOPHILS % 0.5 % (0.0-1.0); EOSINOPHILS # (AUTO) 0.2 (0.0-0.4); EOSINOPHILS % 1.5 % (0.0-6.0); HEMATOCRIT 43.2 % (34.2-44.1); HEMOGLOBIN 14.4 g/dL (12.0-16.0); LYMPHOCYTES # (AUTO) 3.3 (1.0-3.2); LYMPHOCYTES % 21.3 % (18.0-39.1); MEAN CORPUSCULAR HEMOGLOBIN 28.2 pg (28-32); MEAN CORPUSCULAR HGB CONC 33.3 g/dL (31-35); MEAN CORPUSCULAR VOLUME 84.7 fL (81-99); MONOCYTES % 6.5 % (4.4-11.3); NEUTROPHILS # (AUTO) 10.7 (2.1-6.9); NEUTROPHILS % 69.3 % (38.7-80.0); PLATELET COUNT 296 x10e3/uL (140-360); RED CELL DISTRIBUTION WIDTH 13.2 % (11.7-14.4)
[2020-07-24 21:29] LABS: CLARITY,URINE TURBID (CLEAR); COLOR,URINE ORANGE (YELLOW); LEUKOCYTE ESTERASE ,URINE TRACE (NEGATIVE); NITRITE,URINE NEGATIVE (NEGATIVE); PROTEIN,URINE DIPSTICK TRACE (NEGATIVE)
[2020-07-24 21:30] LABS: KETONES,URINE NEGATIVE (NEGATIVE); URINE UROBILINOGEN 0.2 mg/dL (0.2 - 1)
[2020-07-24 21:39] LABS: BACTERIA,URINE FEW /HPF; RBC,URINE >50 /HPF (0-5); WBC,URINE (MAN) 0-5 /HPF (0-5)
[2020-07-24 21:54] LABS: ANION GAP 17.9 mmol/L (8-16); BLOOD UREA NITROGEN 15 mg/dL (7-26); BUN/CREATININE RATIO 19 (6-25); CALCIUM 8.6 mg/dL (8.4-10.2); CARBON DIOXIDE 19 mmol/L (22-29); CHLORIDE 104 mmol/L (98-107); CREATININE, SERUM 0.77 mg/dL (0.57-1.11); EST GLOMERULAR FILTRATION RATE > 60 ML/MIN (60-); GLUCOSE 125 mg/dL (74-118); POTASSIUM 3.9 mmol/L (3.5-5.1); SODIUM 137 mmol/L (136-145)
[2020-07-25] MEDS ORDERED: CEFTRIAXONE SOD 1 GM/NS 50 ML 50 ML IV ONE (00:45)
[2020-07-25] MEDS ORDERED: ONDANSETRON HCL INJ 2MG/ML 2ML 2 MG/ML VIAL IV PRN (01:30)
[2020-07-25] MEDS ORDERED: CEFTRIAXONE SOD 1 GM/NS 50 ML 50 ML IV STA (01:32)
[2020-07-25] MEDS ORDERED: MORPHINE SULFATE INJ 4 MG/ML INJ 1ML IV PRN (01:45)
[2020-07-25] MEDS: SODIUM CHLORIDE 0.9% 1000ML 1,000 ML IV SCH ×4 (01:53→22:00)
[2020-07-25] MEDS: LEVOTHYROXINE SODIUM 100 MCG TAB PO SCH (11:43)
[2020-07-25] MEDS ORDERED: CEFTRIAXONE SOD 1 GM/NS 50 ML 50 ML IV SCH (21:00)
[2020-07-25 21:16] VITALS: BP 129/80
[2020-07-25 21:30] VITALS: BP 129/80
[2020-07-25] MEDS ORDERED: LEVOTHYROXINE50 MCG PO (22:29)
[2020-07-26] VITALS: BP 104/67
[2020-07-26 04:00] VITALS: BP 95/73
[2020-07-26] MEDS: SODIUM CHLORIDE 0.9% 1000ML 1,000 ML IV SCH (05:33)
[2020-07-26] MEDS: LEVOTHYROXINE SODIUM 100 MCG TAB PO SCH (05:33)
[2020-07-26 06:00] LABS: BASOPHILS % 0.3 % (0.0-1.0); EOSINOPHILS # (AUTO) 0.2 (0.0-0.4); EOSINOPHILS % 2.1 % (0.0-6.0); HEMATOCRIT 41.7 % (34.2-44.1); HEMOGLOBIN 13.7 g/dL (12.0-16.0); LYMPHOCYTES # (AUTO) 2.3 (1.0-3.2); LYMPHOCYTES % 21.7 % (18.0-39.1); MEAN CORPUSCULAR HEMOGLOBIN 28.4 pg (28-32); MEAN CORPUSCULAR HGB CONC 32.9 g/dL (31-35); MEAN CORPUSCULAR VOLUME 86.3 fL (81-99); MONOCYTES # (AUTO) 0.8 (0.2-0.8); MONOCYTES % 7.2 % (4.4-11.3); NEUTROPHILS # (AUTO) 7.2 (2.1-6.9); PLATELET COUNT 241 x10e3/uL (140-360); RED BLOOD COUNT 4.83 x10e6/uL (3.6-5.1); RED CELL DISTRIBUTION WIDTH 13.2 % (11.7-14.4)
[2020-07-26 06:21] LABS: ALANINE AMINOTRANSFERASE 8 IU/L (0-55); ALBUMIN 3.7 g/dL (3.5-5.0); ALBUMIN/GLOBULIN RATIO 1.2 (0.8-2.0); ALKALINE PHOSPHATASE 70 IU/L (40-150); ANION GAP 12.4 mmol/L (8-16); BLOOD UREA NITROGEN 9 mg/dL (7-26); BUN/CREATININE RATIO 13 (6-25); CALCIUM 8.1 mg/dL (8.4-10.2); CARBON DIOXIDE 21 mmol/L (22-29); CHLORIDE 111 mmol/L (98-107); CREATININE, SERUM 0.71 mg/dL (0.57-1.11); EST GLOMERULAR FILTRATION RATE > 60 ML/MIN (60-); GLUCOSE 96 mg/dL (74-118); POTASSIUM 4.4 mmol/L (3.5-5.1); SODIUM 140 mmol/L (136-145)
[2020-07-26 08:19] VITALS: BP 114/70
[2020-07-26 08:59] VITALS: BP 114/70
[2020-07-26] MEDS ORDERED: B&O 60MG R/S 60 MG SUPP PR ONE (10:30)
[2020-07-26] MEDS ORDERED: IOPAMIDOL 300MG/ML 50ML INFUS..BTL IV ONE (10:30)
[2020-07-26] MEDS ORDERED: TRAMADOL HCL 50 MG TAB PO PRN (11:15)
[2020-07-26] MEDS ORDERED: B&O 60MG R/S 60 MG SUPP PR PRN (11:15)
[2020-07-26 11:59] VITALS: BP 118/76
[2020-07-26] MEDS ORDERED: AMPICILLIN SOD 1 GM/NS 50ML 1 G in AMPICILLIN SOD 1 GM/NS 50ML 50 ML IV SCH (14:00)
[2020-07-26] MEDS ORDERED: OXYBUTYNIN CHLORIDE 5 MG TAB PO SCH (15:00)
[2020-07-26 16:13] VITALS: BP 121/80
[2020-07-26] MEDS ORDERED: DITROPAN XL5 MG PO (16:44)
[2020-07-26] MEDS ORDERED: ULTRAM50 MG PO (16:44)
[2020-07-26] MEDS ORDERED: PENICILLIN V P500 MG PO (16:44)
== END 2020-07-26 17:58 | disposition home or self-care (01) | DRG 660 ==
LOC: ER 21:03 → ERHOLD 07-25 01:29 → MED/SURG3 07-25 20:41
PROVIDERS: ADMIT Internal Medicine; ATTEND Internal Medicine
PROC: 0T768ZZ Dilation of Right Ureter, Via Natural or Artificial Opening Endoscopic (ICD-10-PCS; principal; 2020-07-26 11:30)
PROC: 0T778DZ Dilation of Left Ureter with Intraluminal Device, Via Natural or Artificial Opening Endoscopic (ICD-10-PCS; principal; 2020-07-26 11:30)
PROC: BT141ZZ Fluoroscopy of Kidneys, Ureters and Bladder using Low Osmolar Contrast (ICD-10-PCS; principal; 2020-07-26 11:30)
PROC: 0TC78ZZ Extirpation of Matter from Left Ureter, Via Natural or Artificial Opening Endoscopic (ICD-10-PCS; principal; 2020-07-26 11:30)
DX: N13.6 Pyonephrosis (principal); N20.2 Calculus of kidney with calculus of ureter; E03.9 Hypothyroidism, unspecified; N23 Unspecified renal colic; N39.3 Stress incontinence (female) (male); R80.9 Proteinuria, unspecified; N39.0 Urinary tract infection, site not specified; Z20.822 Contact with and (suspected) exposure to COVID-19
CPT/HCPCS: 36415; 74018; 74176; 74420; 80048; 80053; 81001; 83735; 83970; 84550; 84702; 85025; 87086; 88300; 99285; C1758; C1769; C2617; J0290; J0696; J2270; J2405; J7030; U0002

== ENCOUNTER → 2020-09-30 | Day surgery (SDC) | payer OTHER ==
[2020-09-26 11:00] LABS: BASOPHILS % 0.4 % (0.0-1.0); EOSINOPHILS # (AUTO) 0.2 (0.0-0.4); EOSINOPHILS % 1.7 % (0.0-6.0); HEMATOCRIT 44.8 % (34.2-44.1); LYMPHOCYTES # (AUTO) 2.6 (1.0-3.2); LYMPHOCYTES % 27.2 % (18.0-39.1); MEAN CORPUSCULAR HEMOGLOBIN 27.8 pg (28-32); MEAN CORPUSCULAR HGB CONC 33.5 g/dL (31-35); MONOCYTES # (AUTO) 0.7 (0.2-0.8); NEUTROPHILS # (AUTO) 5.9 (2.1-6.9); NEUTROPHILS % 62.8 % (38.7-80.0); PLATELET COUNT 262 x10e3/uL (140-360); RED CELL DISTRIBUTION WIDTH 12.9 % (11.7-14.4)
[2020-09-26 11:16] LABS: ANION GAP 15.3 mmol/L (8-16); BLOOD UREA NITROGEN 10 mg/dL (7-26); BUN/CREATININE RATIO 13 (6-25); CALCIUM 9.2 mg/dL (8.4-10.2); CARBON DIOXIDE 23 mmol/L (22-29); CHLORIDE 106 mmol/L (98-107); CREATININE, SERUM 0.77 mg/dL (0.57-1.11); EST GLOMERULAR FILTRATION RATE > 60 ML/MIN (60-); GLUCOSE 96 mg/dL (74-118); POTASSIUM 4.3 mmol/L (3.5-5.1); SODIUM 140 mmol/L (136-145)
[~2020-09-30] MED LIST changes: +B&O 60MG R/S 60 MG SUPP PR ONE; +CEFTRIAXONE SOD 1 GM VIAL ONE; +DITROPAN XL5 MG PO; +IOPAMIDOL 300MG/ML 50ML INFUS..BTL IV ONE; +LEVOTHYROXINE50 MCG PO; +PENICILLIN V P500 MG PO; +SODIUM CHLORIDE 0.9% 50ML 50 ML ONE; +ULTRAM50 MG PO
[2020-09-30 08:22] VITALS: BP 116/78
== END | disposition home or self-care (01) ==
LOC: OR 06:06
PROVIDERS: ATTEND Urology
DX: Z87.442 Personal history of urinary calculi (principal); Z46.6 Encounter for fitting and adjustment of urinary device; N81.10 Cystocele, unspecified; N81.6 Rectocele; N36.41 Hypermobility of urethra; N28.89 Other specified disorders of kidney and ureter; E07.9 Disorder of thyroid, unspecified; Z01.812 Encounter for preprocedural laboratory examination; Z01.818 Encounter for other preprocedural examination; Z20.822 Contact with and (suspected) exposure to COVID-19
CPT/HCPCS: 36415; 52351; 74018; 74420; 80048; 81025 ×2; 83970; 84550; 85025; C1769; J0696; Q9967; U0002

== ENCOUNTER → 2021-02-05 | Outpatient (CLI) | payer OTHER ==
[~2021-02-05] MED LIST changes: -B&O 60MG R/S 60 MG SUPP PR ONE; -CEFTRIAXONE SOD 1 GM VIAL ONE; -IOPAMIDOL 300MG/ML 50ML INFUS..BTL IV ONE; -SODIUM CHLORIDE 0.9% 50ML 50 ML ONE
== END ==
LOC: US 14:48
PROVIDERS: ATTEND Urology
DX: N20.0 Calculus of kidney (principal)
CPT/HCPCS: 76770

== ENCOUNTER → 2021-05-16 | Outpatient (CLI) | payer OTHER | LOC: US 14:50 | PROVIDERS: ATTEND Urology | DX: N20.0 Calculus of kidney (principal) | CPT/HCPCS: 76770; 76857 ==

== ENCOUNTER → 2022-05-20 | Outpatient (CLI) | payer OTHER | LOC: RAD 08:55 | PROVIDERS: ATTEND Urology | DX: N20.0 Calculus of kidney (principal) | CPT/HCPCS: 36415; 74018; 81025 ==